=== PATIENT | female | born 1980 | race Two or more races ===

== ENCOUNTER 2017-12-29 13:52 | Emergency (ER) | payer MEDICAID ==
--- NOTE | 2017-12-29 14:44 | ER Document Report ---
ED Medical Screen (RME) - General Chief Complaint: Abdominal Pain Stated Complaint: STOMACH/BACK PAIN Time Seen by Provider: 12/29/17 14:36 Notes: RAPID MEDICAL EVALUATION DISCLOSURE I have seen this patient as part of a Rapid Medical Evaluation and, if applicable, placed any initially appropriate orders. The patient will be seen and fully evaluated, including a full history and physical exam, by a provider ( in Main ED or Fast Track) when a room becomes available. 37-year-old female status post gastric bypass surgery here with complaints of left-sided and epigastric abdominal pain that started earlier today. The pain has been a constant ache and has not improved. Patient's been taking her hydrocodone. No fevers or chills. She has chronic vomiting and diarrhea ever since her surgery in August and last episode was yesterday evening. EXAM Mild left upper quadrant / epigastric TTP TRAVEL OUTSIDE OF THE [place] IN LAST 30 DAYS: No - Related Data Allergies/Adverse Reactions: No Known Allergies Allergy (Verified 12/29/17 13:56) Home Medications: hydrocodone, gabapentin, vitamins Past Medical History - Social History Chew tobacco use (# tins/day): No Frequency of alcohol use: None Drug Abuse: None Neurological Medical History: Reports: Hx Migraine Renal/ Medical History: Denies: Hx Peritoneal Dialysis Psychiatric Medical History: Reports: Hx Anxiety, Hx Depression Past Surgical History: Reports: Hx Breast Surgery, Hx Section, Hx Oral Surgery Physical Exam - Vital signs Vitals: Temp Pulse Resp BP Pulse Ox 98.4 F 92 16 124/77 99 12/29/17 13:59 12/29/17 13:59 12/29/17 13:59 12/29/17 13:59 12/29/17 13:59 Course - Vital Signs Vital signs: Temp Pulse Resp BP Pulse Ox 98.4 F 92 16 124/77 99 12/29/17 13:59 12/29/17 13:59 12/29/17 13:59 12/29/17 13:59 12/29/17 13:59
[2017-12-29 15:29] LABS: ABSOLUTE LYMPHOCYTES (AUTO) 1.5 10^3/uL (0.5-4.7); ABSOLUTE MONOCYTES (AUTO) 0.4 10^3/uL (0.1-1.4); ABSOLUTE NEUT (AUTO) 4.4 10^3/uL (1.7-8.2); BASOPHILS % (AUTO) 0.3 % (0-2); EOSINOPHILS % (AUTO) 0.7 % (0-6); HEMATOCRIT 34.7 % (36.0-47.0); HEMOGLOBIN 11.4 g/dL (12.0-15.5); LYMPHOCYTES % (AUTO) 23.1 % (13-45); MEAN CORPUSCULAR HEMOGLOBIN 29.2 pg (27.0-33.4); MEAN CORPUSCULAR HGB CONC 32.7 g/dL (32.0-36.0); MEAN CORPUSCULAR VOLUME 89 fl (80-97); MONOCYTES % (AUTO) 5.9 % (3-13); PLATELET COUNT 263 10^3/uL (150-450); RED BLOOD COUNT 3.89 10^6/uL (3.72-5.28); RED CELL DISTRIBUTION WIDTH 13.6 % (11.5-14.0); TOTAL CELLS COUNTED % (AUTO) 100 %; WHITE BLOOD COUNT 6.3 10^3/uL (4.0-10.5)
[2017-12-29] MEDS ORDERED: NORMAL SALINE 1000 ML 1,000 ML IV ONE (15:37)
[2017-12-29] MEDS ORDERED: KETOROLAC TROMETHAMINE INJ/PF 30 MG/1 ML SDV IV ONE (15:39)
[2017-12-29] MEDS ORDERED: ONDANSETRON 4 MG TAB.RAPDIS PO ONE (15:40)
--- NOTE | 2017-12-29 15:48 | ER Document Report ---
ED General - General Chief Complaint: Abdominal Pain Stated Complaint: STOMACH/BACK PAIN Time Seen by Provider: 12/29/17 14:36 Mode of Arrival: Ambulatory Information source: Patient Notes: 39-year-old female presents emergency department for evaluation of abdominal pain. Patient had gastric bypass surgery in August. Patient reports that she has been having intermittent abdominal pain, vomiting, and diarrhea since. Patient reports that this recent abdominal pain started yesterday and came out of nowhere. She reports that it is in her epigastric area and left side. She denies any blood in her vomitus or diarrhea. Patient also reports that she has a headache and chills. She denies any fever, chest pain, shortness of breath, dysuria, or hematuria. TRAVEL OUTSIDE OF THE [place] IN LAST 30 DAYS: No - Related Data Allergies/Adverse Reactions: No Known Allergies Allergy (Verified 12/29/17 13:56) Home Medications: hydrocodone, gabapentin, vitamins Past Medical History - General Information source: Patient - Social History Smoking Status: Never Smoker Chew tobacco use (# tins/day): No Frequency of alcohol use: None Drug Abuse: None Family History: Reviewed & Not Pertinent Patient has suicidal ideation: No Patient has homicidal ideation: No Neurological Medical History: Reports: Hx Migraine Renal/ Medical History: Denies: Hx Peritoneal Dialysis Psychiatric Medical History: Reports: Hx Anxiety, Hx Depression Past Surgical History: Reports: Hx Breast Surgery, Hx Section, Hx Oral Surgery Review of Systems - Review of Systems -: Yes All other systems reviewed and negative Physical Exam - Vital signs Vitals: Temp Pulse Resp BP Pulse Ox 98.4 F 92 16 124/77 99 12/29/17 13:59 12/29/17 13:59 12/29/17 13:59 12/29/17 13:59 12/29/17 13:59 - Notes Notes: PHYSICAL EXAMINATION: GENERAL: Well-appearing, well-nourished and in no acute distress. HEAD: Atraumatic, normocephalic. EYES: Pupils equal round and reactive to light, extraocular movements intact, sclera anicteric, conjunctiva are normal. ENT: Nares patent, oropharynx clear without exudates. Moist mucous membranes. NECK: Normal range of motion, supple without lymphadenopathy LUNGS: Breath sounds clear to auscultation bilaterally and equal. No wheezes rales or rhonchi. HEART: Regular rate and rhythm without murmurs ABDOMEN: Soft, tenderness to the epigastric and left upper quadrant with no guarding, rigidity, rebound tenderness, or peritoneal signs. Abdomen nondistended. No masses appreciated. Bowel sounds normal in all 4 quadrants. Musculoskeletal: Normal range of motion, no pitting or edema. No cyanosis. NEUROLOGICAL: Cranial nerves grossly intact. Normal speech, normal gait. Normal sensory, motor exams PSYCH: Normal mood, normal affect. SKIN: Warm, Dry, normal turgor, no rashes or lesions noted. Course - Re-evaluation Re-evalutation: 12/29/17 15:53 Patient with history of gastric bypass surgery in August presents to the emergency department for evaluation of abdominal pain, nausea, vomiting and diarrhea. Patient was nontoxic or septic appearing in no acute or respiratory distress. Patient was afebrile and not hypoxic. Patient had tenderness to the epigastric and left quadrant. CT of abdomen ordered along with CBC, CMP, lipase , and UA. Will treat with 1 L normal saline and Toradol. Will reassess after treatment and labs resulted and treatment. 12/29/17 20:04 CMP demonstrated transaminitis see CMP. CBC, lipase, and UA were unremarkable. Case was discussed with Dr. Fairbanks attending and Dr. Osman surgery for concern of internal hernia. CT demonstrated 2 mm non-obstructing right sided renal calculi. No internal hernia or bowel obstruction was noted. Dr. Osman also had no concern for internal hernia. Hepatitis panel was ordered due to elevated liver enzymes. Patient was given Toradol, IV fluid, 4 mg of morphine. After treatment patient was feeling better. Abdomen was mildly tender. Patient is requesting to go home at this time. I discussed care plan at length with patient. Any and all questions were answered. Discharged home with Ritu. Patient reports that she is not in pain clinic and has plenty of pain medicine at home. Advised patient of her elevated liver enzymes and advised her to follow-up with her primary care provider and to take medications as instructed. I also advised her to return immediately to the emergency department for any new, worsening, or concerning symptoms as discussed. She understands and agrees with plan. 12/29/17 20:06 - Vital Signs Vital signs: Temp Pulse Resp BP Pulse Ox 98.3 F 71 18 103/60 97 12/29/17 19:54 12/29/17 19:54 12/29/17 19:54 12/29/17 19:54 12/29/17 19:54 - Laboratory Result Diagrams: 12/29/17 15:00 12/29/17 15:00 Laboratory results interpreted by me: 12/29/17 12/29/17 12/29/17 15:00 15:00 15:00 Hgb 11.4 L Hct 34.7 L Carbon Dioxide 31 H Creatinine 0.47 L AST 703 H ALT 230 H Alkaline Phosphatase 153 H Urine Urobilinogen 4.0 H Discharge - Discharge Clinical Impression: Transaminitis Condition: Good Disposition: HOME, SELF-CARE Instructions: Abdominal Pain ([facility]) Additional Instructions: Please follow-up with your primary care provider and take medications as instructed. Return immediately to the emergency department for any new, worsening, or concerning symptoms as discussed. Prescriptions: Ondansetron [Zofran Odt 4 mg Tablet] 1 - 2 tab PO Q4H PRN #15 tab.rapdis PRN Reason: For Nausea/Vomiting
[2017-12-29 15:49] LABS: ALANINE AMINOTRANSFERASE 230 U/L (9-52); ALKALINE PHOSPHATASE 153 U/L (38-126); ANION GAP 10 (5-19); ASPARTATE AMINO TRANSFERASE 703 U/L (14-36); BILIRUBIN,DIRECT 0.3 mg/dL (0.0-0.4); BILIRUBIN,TOTAL 0.3 mg/dL (0.2-1.3); BLOOD UREA NITROGEN 13 mg/dL (7-20); CALCIUM 9.3 mg/dL (8.4-10.2); CARBON DIOXIDE 31 mmol/L (22-30); CHLORIDE 102 mmol/L (98-107); GLUCOSE 103 mg/dL (75-110); LIPASE 67.1 U/L (23-300); SODIUM 142.9 mmol/L (137-145); TOTAL PROTEIN 6.9 g/dL (6.3-8.2)
[2017-12-29 15:53] LABS: APPEARANCE,URINE CLEAR; BILIRUBIN,URINE NEGATIVE (NEGATIVE); COLOR,URINE YELLOW; GLUCOSE, URINE NEGATIVE (NEGATIVE); KETONES,URINE NEGATIVE (NEGATIVE); LEUKOCYTE ESTERASE,URINE NEGATIVE (NEGATIVE); NITRITE,URINE NEGATIVE (NEGATIVE); PROTEIN,URINE NEGATIVE (NEGATIVE); URINE SPECIFIC GRAVITY 1.013
--- NOTE | 2017-12-29 17:55 | RADIOLOGY REPORT (SQ) ---
EXAM DESCRIPTION: CT ABD/PELVIS ORAL ONLY COMPLETED DATE/TIME: 12/29/2017 5:39 pm REASON FOR STUDY: GOP surgery, now epigastric pain COMPARISON: None. TECHNIQUE: CT scan of the abdomen and pelvis performed without intravenous or oral contrast. Images reviewed with lung, soft tissue, and bone windows. Reconstructed coronal and sagittal MPR images revi ewed. All images stored on PACS. All CT scanners at this facility use dose modulation, iterative reconstruction, and/or weight based d osing when appropriate to reduce radiation dose to as low as reasonably achievable (ALARA). [facility]: Dose Right [facility]: CareDose [facility]: Dose Right [facility]: Teradose 4D [facility]: [employer] RADIATION DOSE: CT Rad equipment meets quality standard of care and radiation dose reduction techniq ues were employed. CTDIvol: 8.6 mGy. DLP: 457 mGy-cm.mGy. LIMITATIONS: None. FINDINGS: LOWER CHEST: No significant findings. No nodules or infiltrates. NON-CONTRASTED LIVER, SPLEEN, ADRENALS: Evaluation limited by lack of IV contrast. No identified sign ificant masses. PANCREAS: No masses. No peripancreatic inflammatory changes. GALLBLADDER: Surgically absent. RIGHT KIDNEY AND URETER: No suspicious masses. Assessment limited by lack of IV contrast. 2 mm nono bstructing lower calyceal calculus. No hydronephrosis or hydroureter. LEFT KIDNEY AND URETER: No suspicious masses. Assessment limited by lack of IV contrast. No signifi cant calcifications. No hydronephrosis or hydroureter. AORTA AND RETROPERITONEUM: No aneurysm. No retroperitoneal masses or adenopathy. BOWEL AND PERITONEAL CAVITY: Surgical suture is present in association with the upper stomach. Contr ast is present in the colon. No obvious bowel mass is seen. No inflammatory changes are present. N o fluid collections are seen in association with the GI tract. APPENDIX: Not identified. PELVIS, BLADDER, AND ABDOMINAL WALL:The urinary bladder is normal. The uterus is prominent and sligh tly heterogeneous suggesting presence of fibroids. No free fluid. BONES: No significant findings. OTHER: No other significant finding. IMPRESSION: 1. Surgical changes. No evidence of an abscess. 2. Nonobstructing right renal calculus. 3. Likely uterine fibroids. COMMENT: Quality ID # [id number]: Final reports with documentation of one or more dose reduction techniques (e.g., Automated exposure control, adjustment of the mA and/or kV according to patient size, use of iterative reconstruction technique) TECHNICAL DOCUMENTATION: JOB ID: [id number] [employer]- All Rights Reserved Reading location - IP/workstation name: [email or web address]
[2017-12-29] MEDS ORDERED: MORPHINE SULFATE 10 MG/ML INJ IV ONE ×2 (18:34→19:44)
[2017-12-29 19:55] VITALS: BP 103/60
[2017-12-31 06:38] LABS: HEPATITIS A AB IGM Negative (Negative); HEPATITIS B CORE AB IGM Negative (Negative); HEPATITS B SURFACE ANTIGEN Negative (Negative)
[2017-12-31 12:07] LABS: HEPATITIS C VIRUS ANTIBODY 0.1 s/co ratio (0.0-0.9)
== END 2017-12-29 20:09 | disposition home or self-care (01) ==
LOC: ER 13:52
DX: R74.0 Nonspecific elevation of levels of transaminase and lactic acid dehydrogenase [LDH] (principal); Z98.84 Bariatric surgery status; N20.0 Calculus of kidney; R10.13 Epigastric pain; R10.812 Left upper quadrant abdominal tenderness; R11.10 Vomiting, unspecified; R19.7 Diarrhea, unspecified; R51 Headache; R68.83 Chills (without fever)
CPT/HCPCS: 96376; 99284; 96361; 96374; 96375; 36415; 83690; 85025; 81025; 80053; 81001; 80074; 74176; S0119; J1885; J2270; J7030

== ENCOUNTER 2018-11-19 16:21 | Emergency (ER) | payer MEDICAID ==
[2018-11-19 17:08] LABS: AMORPHOUS SEDIMENT,URINE TRACE /HPF; APPEARANCE,URINE SLIGHTLY-CLOUDY; BILIRUBIN,URINE NEGATIVE (NEGATIVE); COLOR,URINE YELLOW; GLUCOSE, URINE NEGATIVE (NEGATIVE); KETONES,URINE NEGATIVE (NEGATIVE); LEUKOCYTE ESTERASE,URINE LARGE (NEGATIVE); NITRITE,URINE NEGATIVE (NEGATIVE); PROTEIN,URINE NEGATIVE (NEGATIVE); URINE SPECIFIC GRAVITY 1.008; UROBILINOGEN,URINE NEGATIVE mg/dL (<2.0)
--- NOTE | 2018-11-19 17:10 | ER Document Report ---
ED Medical Screen (RME) - General Chief Complaint: Flank Pain Stated Complaint: BACK PAIN Time Seen by Provider: 11/19/18 16:48 Mode of Arrival: Ambulatory Information source: Patient Notes: Patient is a 38-year-old female who presents to the emergency department 2 weeks after having a D&C. Patient reports she was approximately 4 months at the time. She states she is having low abdominal pain, right flank pain and right low back pain. She reports low-grade fevers at home. Denies any nausea, vomiting or diarrhea. Exam: Patient alert, oriented with no acute distress noted. Tenderness to right lower quadrant with palpation. No CVA tenderness. I have greeted and performed a rapid initial assessment of this patient. A comprehensive ED assessment and evaluation of the patient, analysis of test results and completion of the medical decision making process will be conducted by additional ED providers. Dictation of this chart was performed using voice recognition software; therefore, there may be some unintended grammatical errors. TRAVEL OUTSIDE OF THE [place] IN LAST 30 DAYS: No - Related Data Allergies/Adverse Reactions: tramadol Allergy (Verified 11/19/18 16:34) Past Medical History - Social History Chew tobacco use (# tins/day): No Frequency of alcohol use: None Drug Abuse: None Neurological Medical History: Reports: Hx Migraine Renal/ Medical History: Denies: Hx Peritoneal Dialysis Psychiatric Medical History: Reports: Hx Anxiety, Hx Depression Past Surgical History: Reports: Hx Bowel Surgery, Hx Breast Surgery, Hx Section - x4, Hx Oral Surgery Physical Exam - Vital signs Vitals: Temp Pulse Resp BP Pulse Ox 98.9 F 90 18 131/76 H 98 11/19/18 16:45 11/19/18 16:45 11/19/18 16:45 11/19/18 16:45 11/19/18 16:45 Course - Vital Signs Vital signs: Temp Pulse Resp BP Pulse Ox 98.9 F 90 18 131/76 H 98 11/19/18 16:45 11/19/18 16:45 11/19/18 16:45 11/19/18 16:45 11/19/18 16:45
[2018-11-19 17:31] LABS: ABSOLUTE EOSINOPHILS # (AUTO) 0.1 10^3/uL (0.0-0.6); ABSOLUTE LYMPHOCYTES (AUTO) 1.8 10^3/uL (0.5-4.7); ABSOLUTE MONOCYTES (AUTO) 0.6 10^3/uL (0.1-1.4); ABSOLUTE NEUT (AUTO) 7.3 10^3/uL (1.7-8.2); BASOPHILS % (AUTO) 0.3 % (0-2); EOSINOPHILS % (AUTO) 0.7 % (0-6); HEMATOCRIT 33.6 % (36.0-47.0); HEMOGLOBIN 11.1 g/dL (12.0-15.5); LYMPHOCYTES % (AUTO) 18.3 % (13-45); MEAN CORPUSCULAR HEMOGLOBIN 29.4 pg (27.0-33.4); MEAN CORPUSCULAR HGB CONC 33.1 g/dL (32.0-36.0); MEAN CORPUSCULAR VOLUME 89 fl (80-97); MONOCYTES % (AUTO) 6.3 % (3-13); PLATELET COUNT 305 10^3/uL (150-450); RED BLOOD COUNT 3.78 10^6/uL (3.72-5.28); RED CELL DISTRIBUTION WIDTH 13.8 % (11.5-14.0); SEGMENTED NEUTROPHILS % (AUTO) 74.4 % (42-78); TOTAL CELLS COUNTED % (AUTO) 100 %; WHITE BLOOD COUNT 9.9 10^3/uL (4.0-10.5)
--- NOTE | 2018-11-19 17:49 | RADIOLOGY REPORT (SQ) ---
EXAM DESCRIPTION: U/S NON OB PEL TV W/DOPPLER COMPLETED DATE/TIME: 11/19/2018 5:35 pm REASON FOR STUDY: EVAL FOR RETAINED POC, D C 11/07/18 COMPARISON: None. TECHNIQUE: Dynamic and static grayscale images acquired of the pelvis via transvaginal approach and recorded on PACS. Additional selected color Doppler images recorded. LIMITATIONS: Overlying bowel gas. FINDINGS: UTERUS: Measures 10.0 x 5.6 x 7.0 cm. No focal myometrial mass was seen. ENDOMETRIAL STRIPE: The endometrium is heterogeneous and thickened measuring 1.7 cm in double wall th ickness. CERVIX: The cervix measures 3.8 cm in length. Nabothian cysts are noted. RIGHT OVARY AND DOPPLER: The right ovary was not visualized, obscured by overlying bowel gas. LEFT OVARY AND DOPPLER: The left ovary was not visualized, obscured by overlying bowel gas. FREE FLUID: None noted. IMPRESSION: 1. Heterogeneous and thickened endometrium, concerning for retained products of concept ion. 2. Nonvisualized ovaries. TECHNICAL DOCUMENTATION: JOB ID: [id number] 2010 [employer]- All Rights Reserved Rev-12/23 Reading location - IP/workstation name: [email or web address]
[2018-11-19] MEDS ORDERED: ONDANSETRON HCL INJ/PF 4 MG/2 ML SDV IV ONE (17:59)
[2018-11-19] MEDS ORDERED: HYDROMORPHONE HCL INJ/PF 2 MG/ML AMPULE IV ONE ×2 (17:59→20:11)
[2018-11-19] MEDS ORDERED: KETOROLAC TROMETHAMINE INJ/PF 30 MG/1 ML SDV IV ONE (18:00)
--- NOTE | 2018-11-19 18:03 | ER Document Report ---
ED General - General Chief Complaint: Flank Pain Stated Complaint: BACK PAIN Time Seen by Provider: 11/19/18 16:48 Mode of Arrival: Ambulatory Information source: Patient TRAVEL OUTSIDE OF THE [place] IN LAST 30 DAYS: No - HPI Patient complains to provider of: Low back pain and right flank pain Onset: Other - Past couple of days getting worse Onset/Duration: Sudden Quality of pain: Pressure Severity: Severe Pain Level: 5 Associated symptoms: denies: Chills, Diarrhea, Fever, Nausea, Vomiting Exacerbated by: Denies Relieved by: Denies Similar symptoms previously: No Recently seen / treated by doctor: No Notes: 38-year-old female coming in today with right-sided low back pain and right flank pain. 2 weeks ago had a dilation and curettage. She had a 4-month that was terminated due to medical problems and thus needed dilation and curettage. Having a lot of pressure when she urinates. No fevers or shaking chills. No nausea vomiting or diarrhea. She is not having any vaginal bleeding or foul-smelling vaginal discharge. - Related Data Allergies/Adverse Reactions: tramadol Allergy (Verified 11/19/18 16:34) Past Medical History - General Information source: Patient - Social History Smoking Status: Never Smoker Chew tobacco use (# tins/day): No Frequency of alcohol use: None Drug Abuse: None Family History: Reviewed & Not Pertinent Patient has suicidal ideation: No Patient has homicidal ideation: No Neurological Medical History: Reports: Hx Migraine Renal/ Medical History: Denies: Hx Peritoneal Dialysis Psychiatric Medical History: Reports: Hx Anxiety, Hx Depression Past Surgical History: Reports: Hx Bowel Surgery, Hx Breast Surgery, Hx Section - x4, Hx Oral Surgery Review of Systems - Review of Systems Notes: Constitutional: No fevers. No chills. EENT: No eye redness. No eye pain. No ear pain. No sore throat. Cardiovascular: No chest pain. No palpitations. Respiratory: No cough. No shortness of breath. No respiratory distress. Gastrointestinal: No abdominal pain. No nausea, vomiting, or diarrhea. Positive for right flank pain Genitourinary: Atraumatic. No lesions. No pain. No discharge. Musculoskeletal: Atraumatic. No swelling. No deformities. Positive for right sided back pain Skin: No rash or lesions. Lymphatic: No swollen lymph nodes. Neurologic: No headache. No syncope. Psychiatric: No suicidal or homicidal ideation. Physical Exam - Vital signs Vitals: Temp Pulse Resp BP Pulse Ox 98.9 F 90 18 131/76 H 98 11/19/18 16:45 11/19/18 16:45 11/19/18 16:45 11/19/18 16:45 11/19/18 16:45 - Notes Notes: General: Well-developed, well-nourished. In no acute distress. Non-toxic appearing. Cardiac: Well-perfused. Regular rate and rhythm. No murmurs, rubs, or gallops. Pulmonary: No respiratory distress. No cyanosis. Bilateral lung fiels are clear to auscultation. Abdominal: Non-distended. Non-rigid. Bowels sounds are present in all four quadrants. No guarding or rebound. HEENT: Head is atraumatic. Conjunctivae not reddened. No tearing. PERRL. EOMI. Orbits atraumatic. No periorbital swelling or erythema. Oropharynx is without erythema, swelling, or exudates. Neck: Supple. No adenopathy. No meningismus. Dermatologic: Warm with good turgor. No rash. Atraumatic. Chest: Atraumatic. No chest wall tenderness to palpation. Musculoskeletal: Moves all extremities well. No range of motion deficits. no muscular or joint tenderness. No paraspinal muscle tenderness. no midline spinal tenderness or step-off. Genitourinary: Examination deferred Neurologic: No gross neurologic deficits. Psychiatric: Normal mood. Course - Re-evaluation Re-evalutation: 11/19/18 18:02 Considerations include UTI, kidney stone, retained products - Vital Signs Vital signs: Temp Pulse Resp BP Pulse Ox 98.9 F 90 18 131/76 H 98 11/19/18 16:45 11/19/18 16:45 11/19/18 16:45 11/19/18 16:45 11/19/18 16:45 - Laboratory Result Diagrams: 11/19/18 17:10 11/19/18 18:15 Laboratory results interpreted by me: 11/19/18 11/19/18 11/19/18 16:42 16:42 17:10 Hgb 11.1 L Hct 33.6 L Creatinine Beta HCG, Quant Urine Blood SMALL H Ur Leukocyte Esterase LARGE H Urine HCG, Qual POSITIVE H 11/19/18 11/19/18 18:15 18:15 Hgb Hct Creatinine 0.46 L Beta HCG, Quant 37.74 H Urine Blood Ur Leukocyte Esterase Urine HCG, Qual - Consults Dr. Verduzco [employer] english as a second language instructor Time consulted: 20:30 Reason for consultation: 11/19/18 20:30 Thickened endometrium after elective and D&C Consulted provider: other - Patient does not have signs and symptoms that are consistent with an infective process like endometritis. It is possible that the D&C procedure did not fully clear out the endometrial lining. Recommend that the patient follow-up within the next week at the clinic in [place] to have this further taking care of. Recommends treatment for the urinary tract infection, but also recommends 100 mg of doxycycline twice a day for 5 days which would help with potential infections from the endometrium. If the patient absolutely is not able to follow-up with the doctor in [place], she may follow- up locally with the group here. Discharge - Discharge Clinical Impression: Retained products of conception following Urinary tract infection Qualifiers: Urinary tract infection type: site unspecified Hematuria presence: without hematuria Qualified Code(s): N39.0 - Urinary tract infection, site not specified Condition: Good Disposition: HOME, SELF-CARE Instructions: Urinary Tract Infection ([facility]) Additional Instructions: It appears that she may have retained endometrial lining in your uterus that should have come out with your dilatation and curettage procedure. This endometrial lining needs to be removed to prevent infection. You also have a urinary tract infection which we will treat today. Please contact the doctor office in [place] to arrange to have the dilatation and curettage repeated. If you run into any problems he may follow-up with our gynecology group here in [place] Prescriptions: Ciprofloxacin HCl [Cipro 500 mg Tablet] 500 mg PO BID #20 tablet Doxycycline Hyclate 100 mg PO BID #20 capsule Oxycodone HCl/Acetaminophen [Percocet 5-325 mg Tablet] 1 - 2 tab PO Q6H PRN #12 tablet PRN Reason: Referrals: ROSANA VERDUZCO MD [ACTIVE STAFF] - Follow up as needed
[2018-11-19 19:00] LABS: ALANINE AMINOTRANSFERASE 22 U/L (9-52); ALBUMIN 4.2 g/dL (3.5-5.0); ALKALINE PHOSPHATASE 88 U/L (38-126); ANION GAP 7 (5-19); ASPARTATE AMINO TRANSFERASE 22 U/L (14-36); BILIRUBIN,DIRECT 0.3 mg/dL (0.0-0.4); BILIRUBIN,TOTAL 0.3 mg/dL (0.2-1.3); BLOOD UREA NITROGEN 14 mg/dL (7-20); CALCIUM 8.9 mg/dL (8.4-10.2); CARBON DIOXIDE 30 mmol/L (22-30); CHLORIDE 103 mmol/L (98-107); GLUCOSE 80 mg/dL (75-110); SODIUM 140.1 mmol/L (137-145)
[2018-11-19 19:03] LABS: POTASSIUM 3.7 mmol/L (3.6-5.0)
[2018-11-19] MEDS ORDERED: CEFTRIAXONE 1 GM/D5W RTU 1 GM/50 ML RTUPB IV ONE (20:33)
[2018-11-19] MEDS ORDERED: HYDROCODONE/ACETAMINOPHEN 5-325 MG (6 TAB/ER DISP) PO PRN (20:39)
[2018-11-19 21:10] VITALS: BP 130/77
[2018-11-19 22:48] LABS: CHLAM PCR NOT DETECTED (NOT DETECT); GON PCR NOT DETECTED (NOT DETECT)
== END 2018-11-19 21:11 | disposition home or self-care (01) ==
LOC: ER 16:21
DX: O03.4 Incomplete spontaneous abortion without complication (principal); R10.9 Unspecified abdominal pain; M54.9 Dorsalgia, unspecified; M54.5 Low back pain; R30.9 Painful micturition, unspecified; Z98.890 Other specified postprocedural states
CPT/HCPCS: 96376; 99284; 96374; 96375; 36415; 84702; 85025; 81025; 80053; 81001; 87491; 87591; 76830; 93976; J1885; J1170; J2405; J0696

== ENCOUNTER 2018-11-29 15:29 | Emergency (ER) | payer MEDICAID ==
[2018-11-29] MEDS ORDERED: NORMAL SALINE 1000 ML 1,000 ML IV ONE (18:44)
[2018-11-29] MEDS ORDERED: DIPHENHYDRAMINE HCL 50 MG/ML VIAL IV ONE (18:44)
[2018-11-29] MEDS ORDERED: KETOROLAC TROMETHAMINE INJ/PF 30 MG/1 ML SDV IV ONE (18:44)
[2018-11-29] MEDS ORDERED: METOCLOPRAMIDE HCL INJ/PF 10 MG/2 ML SDV IV ONE (18:44)
--- NOTE | 2018-11-29 18:47 | ER Document Report ---
ED Medical Screen (RME) - General Chief Complaint: Headache Stated Complaint: HEADACHE/HEARTBURN Time Seen by Provider: 11/29/18 18:37 Mode of Arrival: Ambulatory Information source: Patient TRAVEL OUTSIDE OF THE [place] IN LAST 30 DAYS: No - HPI Patient complains to provider of: HEADACHE Notes: 11/29/18 18:46 Patient here with main complaint of headache. The patient states that she had an at the end of last month. She was seen here a few weeks ago was noted to have some retained products of conception. She has since seen Dr. Mejía of [employer] and was given some intravaginal tablets to help facilitate getting rid of the rest of the products of conception. States she is basically been vomiting since then for the last 4 days she has had a ache on the right side of her head. No head injury, no blood thinners. No blurred or loss of vision. No unilateral numbness, tingling, weakness. No neck stiffness. Exam Patient is nontoxic, no distress. Nonfocal neurological exam. Lungs clear and equal throughout. Plan CBC, CMP, lipase, UA. Saline lock. IV fluids. Toradol, Reglan, Benadryl. An initial examination was made on the patient as part of the triage process, and it was determined a more comprehensive evaluation was necessary. Initial labs were ordered and patient was transferred to another provider in the ED who assumed care and finished evaluation and plan. - Related Data Allergies/Adverse Reactions: tramadol Allergy (Verified 11/29/18 15:34) Past Medical History Neurological Medical History: Reports: Hx Migraine Renal/ Medical History: Denies: Hx Peritoneal Dialysis Psychiatric Medical History: Reports: Hx Anxiety, Hx Depression Past Surgical History: Reports: Hx Bowel Surgery, Hx Breast Surgery, Hx Section - x4, Hx Oral Surgery Physical Exam - Vital signs Vitals: Temp Pulse Resp BP Pulse Ox 98.4 F 73 14 132/85 H 98 11/29/18 15:44 11/29/18 15:44 11/29/18 15:44 11/29/18 15:44 11/29/18 15:44 Course - Vital Signs Vital signs: Temp Pulse Resp BP Pulse Ox 98.4 F 73 14 132/85 H 98 11/29/18 15:44 11/29/18 15:44 11/29/18 15:44 11/29/18 15:44 11/29/18 15:44
[2018-11-29 19:05] LABS: ABSOLUTE LYMPHOCYTES (AUTO) 2.3 10^3/uL (0.5-4.7); ABSOLUTE MONOCYTES (AUTO) 0.4 10^3/uL (0.1-1.4); ABSOLUTE NEUT (AUTO) 4.6 10^3/uL (1.7-8.2); BASOPHILS % (AUTO) 0.6 % (0-2); EOSINOPHILS % (AUTO) 0.6 % (0-6); HEMATOCRIT 33.1 % (36.0-47.0); HEMOGLOBIN 11.4 g/dL (12.0-15.5); LYMPHOCYTES % (AUTO) 31.1 % (13-45); MEAN CORPUSCULAR HEMOGLOBIN 29.5 pg (27.0-33.4); MEAN CORPUSCULAR HGB CONC 34.3 g/dL (32.0-36.0); MEAN CORPUSCULAR VOLUME 86 fl (80-97); MONOCYTES % (AUTO) 5.9 % (3-13); PLATELET COUNT 300 10^3/uL (150-450); RED BLOOD COUNT 3.85 10^6/uL (3.72-5.28); RED CELL DISTRIBUTION WIDTH 13.5 % (11.5-14.0); SEGMENTED NEUTROPHILS % (AUTO) 61.8 % (42-78); TOTAL CELLS COUNTED % (AUTO) 100 %; WHITE BLOOD COUNT 7.4 10^3/uL (4.0-10.5)
[2018-11-29 19:13] LABS: APPEARANCE,URINE SLIGHTLY-CLOUDY; BILIRUBIN,URINE NEGATIVE (NEGATIVE); COLOR,URINE YELLOW; GLUCOSE, URINE NEGATIVE (NEGATIVE); KETONES,URINE NEGATIVE (NEGATIVE); LEUKOCYTE ESTERASE,URINE NEGATIVE (NEGATIVE); NITRITE,URINE NEGATIVE (NEGATIVE); PROTEIN,URINE NEGATIVE (NEGATIVE); URINE SPECIFIC GRAVITY 1.014; UROBILINOGEN,URINE NEGATIVE mg/dL (<2.0)
[2018-11-29 19:25] LABS: ALANINE AMINOTRANSFERASE 22 U/L (9-52); ALBUMIN 4.1 g/dL (3.5-5.0); ALKALINE PHOSPHATASE 102 U/L (38-126); ANION GAP 7 (5-19); ASPARTATE AMINO TRANSFERASE 17 U/L (14-36); BILIRUBIN,DIRECT 0.3 mg/dL (0.0-0.4); BILIRUBIN,TOTAL 0.3 mg/dL (0.2-1.3); BLOOD UREA NITROGEN 10 mg/dL (7-20); CALCIUM 9.5 mg/dL (8.4-10.2); CARBON DIOXIDE 31 mmol/L (22-30); CHLORIDE 103 mmol/L (98-107); GLUCOSE 91 mg/dL (75-110); LIPASE 109.8 U/L (23-300); POTASSIUM 3.3 mmol/L (3.6-5.0); SODIUM 141.1 mmol/L (137-145); TOTAL PROTEIN 7.7 g/dL (6.3-8.2)
[2018-11-29] MEDS ORDERED: POTASSIUM CHLORIDE 10 MEQ CAPSULE.ER PO ONE (20:33)
[2018-11-29 20:42] VITALS: BP 126/80
--- NOTE | 2018-11-29 20:49 | ER Document Report ---
ED Headache - General Chief Complaint: Headache Stated Complaint: HEADACHE/HEARTBURN Time Seen by Provider: 11/29/18 18:37 Mode of Arrival: Ambulatory Information source: Patient TRAVEL OUTSIDE OF THE [place] IN LAST 30 DAYS: No - HPI Patient complains to provider of: Headache Notes: Patient is here with complaints of headache. The patient recently had an and then was found to have some retained products of conception and saw her OB. She states that she has been dealing with the vaginal bleeding. Patient states that she has had some nausea vomiting for the last several days and has not been able keep anything down she now has a right-sided headache. No injury. No blood thinners. No fever. No neck stiffness. No numbness, tingling, weakness. She denies any worsening abdominal pain. No chest pain or shortness of breath. She has some mild photophobia. Headache was not sudden onset or thunderclap in nature. No neck stiffness. No other complaints. - Related Data Allergies/Adverse Reactions: tramadol Allergy (Verified 11/29/18 15:34) Past Medical History - General Information source: Patient - Social History Smoking Status: Never Smoker Chew tobacco use (# tins/day): No Frequency of alcohol use: None Drug Abuse: None Family History: Reviewed & Not Pertinent Patient has suicidal ideation: No Patient has homicidal ideation: No Neurological Medical History: Reports: Hx Migraine Renal/ Medical History: Denies: Hx Peritoneal Dialysis Psychiatric Medical History: Reports: Hx Anxiety, Hx Depression Past Surgical History: Reports: Hx Bowel Surgery, Hx Breast Surgery, Hx Section - x4, Hx Oral Surgery Review of Systems - Review of Systems -: Yes All other systems reviewed and negative Physical Exam - Vital signs Vitals: Temp Pulse Resp BP Pulse Ox 98.4 F 73 14 132/85 H 98 11/29/18 15:44 11/29/18 15:44 11/29/18 15:44 11/29/18 15:44 11/29/18 15:44 - Notes Notes: GENERAL: alert, cooperative, nontoxic, no distress. HEAD: normocephalic, atraumatic EYES: conjunctiva pink without discharge, no external redness or swelling. Pupils are equal, round, reactive to light. EARS: no external swelling, no external redness NOSE: atraumatic, no external swelling MOUTH/THROAT: mucous membranes moist and pink, posterior pharynx without erythema, swelling, exudate. No trismus or drooling. NECK: soft, supple, full range of motion, no meningismus. CHEST: no distress, lungs clear and equal throughout. No wheezing, rales, rhonchi. CARDIAC: regular rate and rhythm, no murmur, normal capillary refill, normal pulses. No peripheral edema noted. BACK: full range of motion, no CVA tenderness. EXTREMITIES: full range of motion of all extremities. No redness, no swelling. NEURO: alert and oriented x 3, cranial nerves II through XII are grossly intact. Upper and lower extremities are equal throughout. Normal sensation. No focal deficits, full range of motion of all extremities. normal finger to nose. PYSCH: appropriate mood, affect. Patient is cooperative SKIN: pink, warm, dry, no rash. Course - Re-evaluation Re-evalutation: 11/29/18 20:49 Patient is nontoxic-appearing stable vitals. Patient here with complaints of nausea vomiting and headache. Not sudden onset or thunderclap in nature. No blood thinners. No fever or neck stiffness. Nonfocal neuro exam. No sign risk of subarachnoid hemorrhage or meningitis. I do believe the patient is likely experiencing headaches secondary to dehydration from her nausea vomiting. She was given fluids, migraine cocktail with significant improvement of her pain. She states that she feels significant better would like to go home. Patient will be discharged home with prescription for Zofran oral and Phenergan AK. Instructions to drink plenty fluids. Follow-up if not better in the next few days, sooner if worsening pain, fever, numbness, tingling, weakness, neck stiffness, any further concerns. The patient's emergency department workup and current diagnosis were explained to the patient and or family. Follow-up instructions were provided. Medications if prescribed were discussed. Instructions for when to return to the emergency department including specific worrisome symptoms were discussed with the patient and/or family. - Vital Signs Vital signs: Temp Pulse Resp BP Pulse Ox 98.6 F 80 16 126/80 H 100 11/29/18 20:40 11/29/18 20:40 11/29/18 20:40 11/29/18 20:40 11/29/18 20:40 - Laboratory Result Diagrams: 11/29/18 18:52 11/29/18 18:53 Laboratory results interpreted by me: 11/29/18 11/29/18 11/29/18 18:52 18:52 18:53 Hgb 11.4 L Hct 33.1 L Potassium 3.3 L Carbon Dioxide 31 H Urine Blood MODERATE H Discharge - Discharge Clinical Impression: Hypokalemia Nausea & vomiting Qualifiers: Vomiting type: unspecified Vomiting Intractability: unspecified Qualified Code(s): R11.2 - Nausea with vomiting, unspecified Headache Qualifiers: Headache type: unspecified Headache chronicity pattern: unspecified pattern Intractability: not intractable Qualified Code(s): R51 - Headache Condition: Stable Disposition: HOME, SELF-CARE Instructions: Headache ([facility]) Additional Instructions: Take medication as prescribed. Drink plenty of fluids. Follow-up with your MACHINE CLEANER as scheduled tomorrow. Follow-up sooner for worsening pain, fever, neck stiffness, numbness, tingling, weakness, any further concerns. Prescriptions: Ondansetron HCl [Zofran 4 mg Tablet] 1 tab PO Q4H PRN #10 tablet PRN Reason: Promethazine HCl [Phenergan 25 mg Supp.rect] 1 supp AK Q6H #12 supp.rect Forms: Elevated Blood Pressure, Smoking Cessation Education Referrals: [facility] [Provider Group] - Follow up as needed
== END 2018-11-29 20:55 | disposition home or self-care (01) ==
LOC: ER 15:29
DX: E87.6 Hypokalemia (principal); R51 Headache; R11.2 Nausea with vomiting, unspecified
CPT/HCPCS: 99284; 96361; 96374; 96375; 36415; 83690; 85025; 80053; 81001; J1200; J1885; J2765; J7030

== ENCOUNTER 2019-01-01 03:48 | Emergency (ER) | payer MEDICAID ==
--- NOTE | 2019-01-01 04:34 | ER Document Report ---
HPI - HPI Time Seen by Provider: 01/01/19 04:14 Pain Level: 3 Notes: Patient is a 38-year-old female who presents to the emergency department for right hand swelling. Patient states that on Tuesday she was cleaning the house and while bending over she tripped over a rug and landed on her right hand palm down. She states that since then she has had right hand swelling and bruising. Patient states the pain is worse with movement and states she really noticed the discomfort when she was attempting to open a bottle. Patient also states that she started her relister injections on which was prescribed by her [employer] scout for constipation. She states that after the injection notices swelling around her eyes. Patient denies throat swelling, lip swelling or irritation to the throat. Patient denies hives. Patient states the swelling is just localized around her eyes. - REPRODUCTIVE Reproductive: DENIES: : Past Medical History - General Information source: Patient - Social History Smoking Status: Unknown if Ever Smoked Lives with: Spouse/Significant other Family History: Reviewed & Not Pertinent - Past Medical History Cardiac Medical History: Reports: None Pulmonary Medical History: Reports: None EENT Medical History: Reports: None Neurological Medical History: Reports: Hx Migraine Endocrine Medical History: Reports: None Renal/ Medical History: Reports: None. Denies: Hx Peritoneal Dialysis Malignancy Medical History: Reports: None GI Medical History: Reports: None Musculoskeletal Medical History: Reports None Skin Medical History: Reports None Psychiatric Medical History: Reports: Hx Anxiety, Hx Depression Traumatic Medical History: Reports: None Infectious Medical History: Reports: None Past Surgical History: Reports: Hx Bowel Surgery, Hx Breast Surgery, Hx Section - x4, Hx Oral Surgery Vertical Provider Document - CONSTITUTIONAL Agree With Documented VS: Yes Exam Limitations: No Limitations General Appearance: No Apparent Distress - INFECTION CONTROL TRAVEL OUTSIDE OF THE [place] IN LAST 30 DAYS: No - HEENT HEENT: Atraumatic, Normal ENT Exam, Normocephalic - NECK Neck: Normal Inspection - RESPIRATORY Respiratory: Breath Sounds Normal, No Respiratory Distress - CARDIOVASCULAR Cardiovascular: Regular Rate, Regular Rhythm - GI/ABDOMEN Gastrointestinal: Abdomen Soft - MUSCULOSKELETAL/EXTREMETIES Notes: Patient is able to rotate right wrist, + strong right radial pulse, no obvious deformity, Normal opposition, bruising noted on the lateral aspect of the right hand. + snuff box tenderness. - NEURO Level of Consciousness: Awake, Alert, Appropriate - DERM Integumentary: Warm, Dry, No Rash Course - Re-evaluation Re-evalutation: 01/01/19 06:05 Patient xray was negative. Due to mechanism of injury and positive snuff box tenderness I will place patient in a thumb spica splint and have follow up with orthopedics. - Vital Signs Vital signs: Temp Pulse Resp BP Pulse Ox 98.8 F 93 20 128/76 H 98 01/01/19 03:53 01/01/19 03:53 01/01/19 03:53 01/01/19 03:53 01/01/19 03:53 Discharge - Discharge Clinical Impression: Right hand pain Condition: Stable Disposition: HOME, SELF-CARE Additional Instructions: Today you were seen in the emergency department for right hand pain after a fall two days ago. Your XRAY was negative but since you are having discomfort in a specific area of your wrist I have placed you into a thumb spica splint. Please keep this dry and intact until follow up with Orthopedics. Call them tomorrow for an appointment. Return to the ER if you have discoloration of your fingers, new numbness or tingling to your hand or any other concerning signs or symptoms. It is unsure what was causing the swelling around your eyes - this was not present during your visit. Stop the Relister injections for today and call your GI doctor tomorrow to report the possible reaction to this medication as the swelling started after taking this medication. Splint Precautions A splint has been placed. This will protect the area while healing begins. Your problem does NOT normally require a cast. It MUST, however, be held still! Keep the splint on ALL THE TIME until instructed to remove it by the doctor. As you begin to use the area, be careful. You shouldn't do anything which causes discomfort -- you may disturb the injury even with the splint in place. After the initial period of rest and elevation, if splint does not prevent pain when you move, come back. You may require placement of a different splint, or a cast. If there is unexpected severe pain, or numbness, discoloration, or swelling beyond the splint, you should return at once. If you feel that the splint has broken or become loose, come back. Forms: Parent Work Note, Return to Work Referrals: ERNA ESTRADA, DO [ACTIVE STAFF] - Follow up as needed
--- NOTE | 2019-01-01 05:55 | RADIOLOGY REPORT (SQ) ---
EXAM DESCRIPTION: XR HAND 3 OR MORE VIEWS COMPLETED DATE/TME: 01/01/2019 04:23 CLINICAL HISTORY: 38 years, Female, fall onto right hand with bruising and pain COMPARISON: None. NUMBER OF VIEWS: Three TECHNIQUE: Three views of the right hand LIMITATIONS: None. FINDINGS: There is no acute fracture or dislocation. The joint spaces are preserved. No large soft tissue swelling. No radiopaque foreign body. IMPRESSION: No acute fracture or dislocation. copyright 2010 [employer]- All Rights Reserved
[2019-01-01 06:58] VITALS: BP 130/78
== END 2019-01-01 06:21 | disposition home or self-care (01) ==
LOC: ER 03:48
DX: S60.221A Contusion of right hand, initial encounter (principal); M79.641 Pain in right hand; W01.0XXA Fall on same level from slipping, tripping and stumbling without subsequent striking against object, initial encounter; Y93.E9 Activity, other interior property and clothing maintenance; Y92.009 Unspecified place in unspecified non-institutional (private) residence as the place of occurrence of the external cause; K59.00 Constipation, unspecified
CPT/HCPCS: 99283

== ENCOUNTER 2019-07-21 20:41 | Emergency (ER) | payer MEDICAID ==
--- NOTE | 2019-07-21 21:05 | ER Document Report ---
ED Medical Screen (RME) - General Stated Complaint: SHORTNESS OF BREATH,SINUS PRESSURE Time Seen by Provider: 07/21/19 21:00 Primary Care Provider: SKYLER LOGAN [Primary Care Provider] - Follow up as needed Mode of Arrival: Ambulatory Information source: Patient Notes: Patient presents emergency department with complaints of severe headache feeling short of breath, left arm pain and fever for the past couple days. Patient reports she did receive her flu vaccine. Patient reports history of gastric bypass. Denies history of cardiac disease. Patient reports she took Tylenol without relief of symptoms. Respiratory rate even nonlabored I have greeted and performed a rapid initial assessment of this patient. A comprehensive ED assessment and evaluation of the patient, analysis of test results and completion of the medical decision making process will be conducted by additional ED providers. Dictation of this chart was performed using voice recognition software; therefore, there may be some unintended grammatical errors. TRAVEL OUTSIDE OF THE [place] IN LAST 30 DAYS: No - Related Data Allergies/Adverse Reactions: tramadol Allergy (Verified 11/29/18 15:34) Past Medical History Neurological Medical History: Reports: Hx Migraine Renal/ Medical History: Denies: Hx Peritoneal Dialysis Psychiatric Medical History: Reports: Hx Anxiety, Hx Depression Past Surgical History: Reports: Hx Bowel Surgery, Hx Breast Surgery, Hx Section - x4, Hx Oral Surgery Physical Exam - Vital signs Vitals: Temp Pulse Resp BP Pulse Ox 98.4 F 94 20 122/101 H 98 07/21/19 20:52 07/21/19 20:52 07/21/19 20:52 07/21/19 20:52 07/21/19 20:52 Course - Vital Signs Vital signs: Temp Pulse Resp BP Pulse Ox 98.4 F 94 20 122/101 H 98 07/21/19 20:52 07/21/19 20:52 07/21/19 20:52 07/21/19 20:52 07/21/19 20:52 Doctor's Discharge - Discharge Referrals: SKYLER LOGAN [Primary Care Provider] - Follow up as needed
[2019-07-21 21:28] LABS: ABSOLUTE MONOCYTES (AUTO) 0.4 10^3/uL (0.1-1.4); ABSOLUTE NEUT (AUTO) 13.6 10^3/uL (1.7-8.2); BASOPHILS % (AUTO) 0.1 % (0-2); HEMATOCRIT 38.9 % (36.0-47.0); LYMPHOCYTES % (AUTO) 6.4 % (13-45); MEAN CORPUSCULAR HGB CONC 33.6 g/dL (32.0-36.0); MEAN CORPUSCULAR VOLUME 89 fl (80-97); MONOCYTES % (AUTO) 2.4 % (3-13); PLATELET COUNT 304 10^3/uL (150-450); RED BLOOD COUNT 4.35 10^6/uL (3.72-5.28); RED CELL DISTRIBUTION WIDTH 13.1 % (11.5-14.0); SEGMENTED NEUTROPHILS % (AUTO) 91.1 % (42-78); TOTAL CELLS COUNTED % (AUTO) 100 %; WHITE BLOOD COUNT 14.9 10^3/uL (4.0-10.5)
[2019-07-21 21:47] LABS: ALBUMIN 4.7 g/dL (3.5-5.0); ALKALINE PHOSPHATASE 68 U/L (38-126); ANION GAP 15 (5-19); ASPARTATE AMINO TRANSFERASE 17 U/L (14-36); BILIRUBIN,DIRECT 0.2 mg/dL (0.0-0.4); BILIRUBIN,TOTAL 0.4 mg/dL (0.2-1.3); BLOOD UREA NITROGEN 11 mg/dL (7-20); CALCIUM 9.7 mg/dL (8.4-10.2); CARBON DIOXIDE 22 mmol/L (22-30); CHLORIDE 104 mmol/L (98-107); GLUCOSE 147 mg/dL (75-110); POTASSIUM 3.5 mmol/L (3.6-5.0); TOTAL PROTEIN 8.3 g/dL (6.3-8.2)
--- NOTE | 2019-07-21 21:48 | RADIOLOGY REPORT (SQ) ---
EXAM DESCRIPTION: XR CHEST 2 VIEWS COMPLETED DATE/TME: 07/21/2019 21:03 CLINICAL HISTORY: 39 years, Female, sob COMPARISON: X-ray chest 04/22/2016 NUMBER OF VIEWS: TECHNIQUE: LIMITATIONS: None. FINDINGS: No evidence of pulmonary infiltrate or pleural effusion. The heart and mediastinum are unremarkable. Pulmonary vascularity appears normal. There are surgical clips in the upper abdomen. IMPRESSION: No acute finding. copyright 2010 [email or web address]- All Rights Reserved
[2019-07-21] MEDS ORDERED: ACETAMINOPHEN SOLN 325 MG/10.15 ML UDCUP PO ONE (23:26)
--- NOTE | 2019-07-22 00:08 | EKG REPORT ---
SEVERITY:- BORDERLINE ECG - SINUS RHYTHM BORDERLINE T WAVE ABNORMALITIES : Confirmed by: Maverick Duke MD 22-Jul-2019 00:07:34
[2019-07-22] MEDS ORDERED: IBUPROFEN 600 MG TABLET PO ONE (01:28)
[2019-07-22] MEDS ORDERED: CEFTRIAXONE INJ 250 MG VIAL IM ONE (03:16)
[2019-07-22] MEDS ORDERED: DEXAMETHASONE SOD PHOS INJ 10 MG/1 ML VIAL IM ONE (03:17)
--- NOTE | 2019-07-22 03:34 | ER Document Report ---
ED ENT - General Chief Complaint: Sinus Pain Stated Complaint: SHORTNESS OF BREATH,SINUS PRESSURE Time Seen by Provider: 07/21/19 21:00 Primary Care Provider: SKYLER LOGAN [Primary Care Provider] - Follow up as needed Mode of Arrival: Ambulatory TRAVEL OUTSIDE OF THE [place] IN LAST 30 DAYS: No - Related Data Allergies/Adverse Reactions: tramadol Allergy (Verified 11/29/18 15:34) Home Medications: hydrocodone. antidepressant Past Medical History - General Information source: Patient - Social History Smoking Status: Never Smoker Chew tobacco use (# tins/day): No Frequency of alcohol use: None Drug Abuse: None Family History: Reviewed & Not Pertinent Patient has suicidal ideation: No Patient has homicidal ideation: No Neurological Medical History: Reports: Hx Migraine Renal/ Medical History: Denies: Hx Peritoneal Dialysis Psychiatric Medical History: Reports: Hx Anxiety, Hx Depression Past Surgical History: Reports: Hx Bowel Surgery, Hx Breast Surgery, Hx Section - x4, Hx Oral Surgery Physical Exam - Vital signs Vitals: Temp Pulse Resp BP Pulse Ox 98.4 F 94 20 122/101 H 98 07/21/19 20:52 07/21/19 20:52 07/21/19 20:52 07/21/19 20:52 07/21/19 20:52 Course - Vital Signs Vital signs: Temp Pulse Resp BP Pulse Ox 97.8 F 87 16 143/94 H 99 07/21/19 23:21 07/21/19 23:21 07/21/19 23:21 07/21/19 23:21 07/21/19 23:21 - Laboratory Result Diagrams: 07/21/19 21:14 07/21/19 21:14 Laboratory results interpreted by me: 07/21/19 07/21/19 21:14 21:14 WBC 14.9 H Lymph % (Auto) 6.4 L [place] % (Auto) 2.4 L Absolute Neuts (auto) 13.6 H Seg Neutrophils % 91.1 H Potassium 3.5 L Glucose 147 H Total Protein 8.3 H Discharge - Discharge Clinical Impression: Sinus headache Acute sinusitis Qualifiers: Sinusitis location: unspecified location Recurrence: not specified as recurrent Qualified Code(s): J01.90 - Acute sinusitis, unspecified Condition: Good Disposition: HOME, SELF-CARE Instructions: Sinusitis ([facility]) Additional Instructions: Please use the medications as prescribed cefdinir and prednisone. Diflucan is given for possible yeast infection complications. Follow-up with your doctor as needed. Referrals: SKYLER LOGAN [Primary Care Provider] - Follow up as needed
[2019-07-22 03:41] VITALS: BP 143/82
== END 2019-07-22 03:55 | disposition home or self-care (01) ==
LOC: ER 20:41
DX: J01.90 Acute sinusitis, unspecified (principal); R51 Headache; F32.9 Major depressive disorder, single episode, unspecified; Z79.899 Other long term (current) drug therapy; Z79.891 Long term (current) use of opiate analgesic; Z88.8 Allergy status to other drugs, medicaments and biological substances
CPT/HCPCS: 93005; 99285; 96372; 96374; 36415; 85025; 80053; 84484; 71046; 93010; J3490 ×2; J0696; J1100

== ENCOUNTER 2019-11-25 15:58 | Emergency (ER) | payer MEDICAID ==
[2019-11-25] MEDS ORDERED: ONDANSETRON HCL INJ/PF 4 MG/2 ML SDV IV ONE (17:01)
[2019-11-25] MEDS ORDERED: MORPHINE SULFATE 10 MG/ML INJ IV ONE (17:01)
--- NOTE | 2019-11-25 17:04 | ER Document Report ---
ED GI/ - General TRAVEL OUTSIDE OF THE [place] IN LAST 30 DAYS: No <TAVO HOLMAN - Last Filed: 11/25/19 19:51> <DEMARIOLC LUEVANO - Last Filed: 11/26/19 01:32> - General Chief Complaint: Epigastric Pain Stated Complaint: EPIGASTRIC PAIN,LEFT ARM PAIN Time Seen by Provider: 11/25/19 16:47 Primary Care Provider: SKYLER LOGAN [NO LOCAL MD] - Follow up tomorrow Notes: CHIEF COMPLAINT: Epigastric abdominal pain for 4 days HPI: 39-year-old female with history of Casey-en-Y gastric bypass in [place] [address] Dasilva now following with Dr. Macias presenting for 4 days of a constant aching epigastric discomfort. Patient states she has nausea vomiting episodes every day and this is not abnormal for her unfortunately. Patient states today she had a sudden increase in the discomfort which seemed to radiate through the chest into the left shoulder and down the left arm for approximately 1 minute no shortness of breath. No chest pain or discomfort in the arm at this time. ROS: See HPI - all other systems were reviewed and are otherwise negative Constitutional: no fever Eyes: no drainage, no blurred vision ENT: no runny nose, no sore throat Cardiovascular: + chest pain Resp: no SOB, no cough GI: + vomiting, no diarrhea, + abdominal pain : no dysuria Integumentary: no rash Allergy: no hives Musculoskeletal: no extremity pain or swelling Neurological: no numbness/tingling, no weakness MEDICATIONS: I agree with the patient medications as charted by the RN. ALLERGIES: I agree with the allergies as charted by the RN. PAST MEDICAL HISTORY/PAST SURGICAL HISTORY: Reviewed and agree as charted by RN. SOCIAL HISTORY: Reviewed and agree as charted by RN. FAMILY HISTORY: No significant familial comorbid conditions directly related to patient complaint EXAM: Reviewed vital signs as charted by RN. CONSTITUTIONAL: Alert and oriented and responds appropriately to questions. Well-appearing; well-nourished mild distress secondary to pain HEAD: Normocephalic; atraumatic EYES: PERRL; Conjunctivae clear, sclerae non-icteric ENT: normal nose; no rhinorrhea; moist mucous membranes; pharynx without lesions noted, no uvula edema or deviation, no tonsillar hypertrophy, phonation normal NECK: Supple without meningismus; non-tender; no cervical lymphadenopathy, no masses CARD: RRR; no murmurs, no clicks, no rubs, no gallops; symmetric distal pulses RESP: Normal chest excursion without splinting or tachypnea; breath sounds clear and equal bilaterally; no wheezes, no rhonchi, no rales, pulse oximetry 97% on room air not hypoxic ABD/GI: Normal bowel sounds; non-distended; soft, mild tenderness to the epigastric region on palpation, no rebound, no guarding; no palpable organomegaly or masses. BACK: The back appears normal and is non-tender to palpation, there is no CVA tenderness EXT: Normal ROM in all joints; non-tender to palpation; no cyanosis, no effusions, no edema SKIN: Normal color for age and race; warm; dry; good turgor; no acute lesions noted NEURO: Moves all extremities equally; Motor and sensory function intact PSYCH: The patient's mood and manner are appropriate. Grooming and personal hygiene are appropriate. MDM: 39-year-old female with gastric bypass history in 2017 has had problems with with abdominal pain and vomiting since her surgery but has had 4 days of more persistent epigastric abdominal discomfort. States she had an episode of chest discomfort today for 1 minute approximately 3 to 4 hours ago. Has no discomfort at this time. Patient has no known cardiac history that she is aware of. Will obtain EKG and 1 set of screening cardiac labs although I suspect this is likely gastric in origin. Will obtain screening labs and plan for CT with oral contrast given the gastric bypass history (TAVO HOLMAN) - Related Data Allergies/Adverse Reactions: tramadol Allergy (Verified 11/25/19 17:08) Past Medical History - Social History Family History: Reviewed & Not Pertinent Neurological Medical History: Reports: Hx Migraine Renal/ Medical History: Denies: Hx Peritoneal Dialysis Psychiatric Medical History: Reports: Hx Anxiety, Hx Depression Past Surgical History: Reports: Hx Bowel Surgery, Hx Breast Surgery, Hx Section - x4, Hx Oral Surgery <TAVO HOLMAN - Last Filed: 11/25/19 19:51> - General Information source: Patient - Social History Smoking Status: Never Smoker Lives with: Family <LC HAILE - Last Filed: 11/26/19 01:32> Physical Exam - Vital signs Vitals: Temp Pulse Resp BP Pulse Ox 99.0 F 98 18 139/89 H 99 11/25/19 16:03 11/25/19 16:03 11/25/19 16:03 11/25/19 16:03 11/25/19 16:03 Course - Laboratory Result Diagrams: 11/25/19 17:30 11/25/19 17:30 <TAVO HOLMAN - Last Filed: 11/25/19 19:51> - Laboratory Result Diagrams: 11/25/19 17:30 11/25/19 17:30 <LC HAILE - Last Filed: 11/26/19 01:32> - Re-evaluation Re-evalutation: 11/25/19 19:51 report will be given to oncoming shift to follow and disposition. (TAVO HOLMAN) I was performing a procedure and nursing staff informed me that patient had called out 3 times with her call roy, I did review CAT scan results and this was unremarkable no acute findings (CT of the abdomen pelvis with IV contrast), reviewed labs which were unremarkable. I reevaluated patient. Patient is very talkative and well-appearing. She had previously been complaining of headache but currently has no complaints. She states that she did have sharp epigastric pain earlier but she states this is not new, she also reports intermittent nausea and vomiting but this is also not new. I discussed results and my intention of discussing with Dr. Macias, bariatric surgery and I will get back to her. Patient states that she will not wait for this, she requests and then insisted that she be discharged. She states that she will call them tomorrow and call her car refinisher tomorrow as well. I did provide patient with nausea medication, I did discuss recommendations, follow-up, and return precautions. Patient does state understanding and agreement. Stable and well- appearing at time of discharge. (LC HAILE) - Vital Signs Vital signs: Temp Pulse Resp BP Pulse Ox 98.5 F 90 18 127/86 H 100 11/25/19 22:05 11/25/19 22:05 11/25/19 22:05 11/25/19 22:05 11/25/19 22:05 - Laboratory Laboratory results interpreted by me: 11/25/19 11/25/19 11/25/19 17:20 17:30 17:30 RDW 15.3 H Sodium 136.5 L Glucose 111 H Total Protein 8.4 H Urine Blood SMALL H Discharge <TAVO HOLMAN - Last Filed: 11/25/19 19:51> <LC HAILE - Last Filed: 11/26/19 01:32> - Discharge Clinical Impression: Epigastric pain Condition: Stable Disposition: HOME, SELF-CARE Additional Instructions: Your laboratory work-up, CAT scan, and overall evaluation is reassuring. Take the symptom management for pain and nausea if needed, call your car refinisher and bariatric surgeon tomorrow for close follow-up and additional management. Return if you worsen including uncontrolled vomiting, vomiting blood, severe worsening pain, black stools, spiking fever, or any other concerning symptoms. Prescriptions: Ondansetron [Zofran Odt 4 mg Tablet] 1 - 2 tab PO Q4H PRN #15 tab.rapdis PRN Reason: For Nausea/Vomiting Referrals: SKYLER LOGAN [NO LOCAL MD] - Follow up tomorrow
[2019-11-25 17:39] LABS: APPEARANCE,URINE CLEAR; BILIRUBIN,URINE NEGATIVE (NEGATIVE); COLOR,URINE YELLOW; GLUCOSE, URINE NEGATIVE (NEGATIVE); KETONES,URINE NEGATIVE (NEGATIVE); LEUKOCYTE ESTERASE,URINE NEGATIVE (NEGATIVE); NITRITE,URINE NEGATIVE (NEGATIVE); PROTEIN,URINE NEGATIVE (NEGATIVE); URINE SPECIFIC GRAVITY 1.014; UROBILINOGEN,URINE NEGATIVE mg/dL (<2.0)
[2019-11-25 18:00] LABS: ABSOLUTE EOSINOPHILS # (AUTO) 0.1 10^3/uL (0.0-0.6); ABSOLUTE MONOCYTES (AUTO) 0.4 10^3/uL (0.1-1.4); ABSOLUTE NEUT (AUTO) 3.8 10^3/uL (1.7-8.2); BASOPHILS % (AUTO) 0.6 % (0-2); HEMATOCRIT 36.1 % (36.0-47.0); HEMOGLOBIN 12.1 g/dL (12.0-15.5); LYMPHOCYTES % (AUTO) 32.4 % (13-45); MEAN CORPUSCULAR HEMOGLOBIN 30.8 pg (27.0-33.4); MEAN CORPUSCULAR HGB CONC 33.6 g/dL (32.0-36.0); MEAN CORPUSCULAR VOLUME 92 fl (80-97); MONOCYTES % (AUTO) 6.2 % (3-13); PLATELET COUNT 332 10^3/uL (150-450); RED BLOOD COUNT 3.93 10^6/uL (3.72-5.28); RED CELL DISTRIBUTION WIDTH 15.3 % (11.5-14.0); SEGMENTED NEUTROPHILS % (AUTO) 59.8 % (42-78); TOTAL CELLS COUNTED % (AUTO) 100 %; WHITE BLOOD COUNT 6.3 10^3/uL (4.0-10.5)
[2019-11-25 18:19] LABS: ALBUMIN 4.6 g/dL (3.5-5.0); ALKALINE PHOSPHATASE 94 U/L (38-126); ANION GAP 10 (5-19); ASPARTATE AMINO TRANSFERASE 21 U/L (14-36); BILIRUBIN,TOTAL 0.4 mg/dL (0.2-1.3); BLOOD UREA NITROGEN 9 mg/dL (7-20); CALCIUM 9.4 mg/dL (8.4-10.2); CARBON DIOXIDE 22 mmol/L (22-30); CHLORIDE 105 mmol/L (98-107); GLUCOSE 111 mg/dL (75-110); POTASSIUM 3.7 mmol/L (3.6-5.0); TOTAL PROTEIN 8.4 g/dL (6.3-8.2)
--- NOTE | 2019-11-25 19:21 | EKG REPORT ---
SEVERITY:- BORDERLINE ECG - SINUS RHYTHM BORDERLINE T ABNORMALITIES, ANTERIOR LEADS : Confirmed by: Maverick Duke MD 25-Nov-2019 19:21:02
[2019-11-25] MEDS ORDERED: METOCLOPRAMIDE HCL INJ/PF 10 MG/2 ML SDV IV ONE (20:04)
[2019-11-25] MEDS ORDERED: NORMAL SALINE 1000 ML 1,000 ML IV ONE (20:04)
[2019-11-25] MEDS ORDERED: DIPHENHYDRAMINE HCL 50 MG/ML VIAL IV ONE (20:04)
--- NOTE | 2019-11-25 21:15 | RADIOLOGY REPORT (SQ) ---
EXAM DESCRIPTION: CT ABDOMEN PELVIS WITH IV CONTRAST COMPLETED DATE/TME: 11/25/2019 00:00 CLINICAL HISTORY: 39 years Female epigastric pain, hx casey en y 2016 COMPARISON: 12/29/2017. TECHNIQUE: Contiguous axial images obtained through the abdomen and pelvis following IV contrast. Reformatted images obtained. This exam was performed according to our department optimization program which includes automated exposure control, adjustment of the mA and/or kv according to patient size and/or use of iterative reconstruction technique. FINDINGS: The liver appears unremarkable. The spleen and pancreas appear unremarkable. No adrenal masses. The kidneys appear unremarkable. No hydronephrosis. The gallbladder is absent with mild biliary ductal dilatation No aneurysmal dilatation of the aorta. No bowel obstruction. The appendix is nonvisualized Gastric bypass with Casey-en-Y.. No significant free fluid noted. IMPRESSION: No acute abnormality is identified. Absent gallbladder with mild biliary ductal dilatation. If there is concern for ductal obstruction MRCP could be acquired Gastric bypass
[2019-11-25] MEDS ORDERED: HYDROCODONE/ACETAMINOPHEN 5-325 MG (6 TAB/ER DISP) PO PRN (21:30)
[2019-11-25] MEDS ORDERED: ONDANSETRON ODT 4 MG TAB (6 TAB/ER DISP) PO PRN (21:31)
[2019-11-25 22:20] VITALS: BP 127/86
== END 2019-11-25 22:15 | disposition home or self-care (01) ==
LOC: ER 15:58
DX: R10.13 Epigastric pain (principal); M79.602 Pain in left arm
CPT/HCPCS: 93005; 99284; 96361; 96374; 96375; 36415; 83690; 85025; 81025; 80053; 81001; 74177; 93010; J1200; J2765; J2270; J2405; J7030

== ENCOUNTER 2020-02-04 10:15 | Day surgery (SDC) | payer MEDICAID ==
[2020-01-31 10:45] LABS: HEMATOCRIT 33.7 % (36.0-47.0); HEMOGLOBIN 11.1 g/dL (12.0-15.5); MEAN CORPUSCULAR HGB CONC 32.9 g/dL (32.0-36.0); MEAN CORPUSCULAR VOLUME 91 fl (80-97); PLATELET COUNT 352 10^3/uL (150-450); RED BLOOD COUNT 3.68 10^6/uL (3.72-5.28); RED CELL DISTRIBUTION WIDTH 13.9 % (11.5-14.0); WHITE BLOOD COUNT 10.9 10^3/uL (4.0-10.5)
[2020-01-31 10:47] LABS: APPEARANCE,URINE CLEAR; BILIRUBIN,URINE NEGATIVE (NEGATIVE); COLOR,URINE STRAW; GLUCOSE, URINE NEGATIVE (NEGATIVE); KETONES,URINE NEGATIVE (NEGATIVE); LEUKOCYTE ESTERASE,URINE TRACE (NEGATIVE); NITRITE,URINE NEGATIVE (NEGATIVE); PROTEIN,URINE NEGATIVE (NEGATIVE); URINE SPECIFIC GRAVITY 1.011; UROBILINOGEN,URINE NEGATIVE mg/dL (<2.0)
[~2020-02-04 10:15] MED LIST: LACTATED RINGERS 1000 ML IV PRN; LIDOCAINE 0.5% INJ-PF (5 MG/ML) 50 ML SDV SUBCUT PRN
[2020-02-04] MEDS ORDERED: MIDAZOLAM 2 MG/2 ML INJ ONE (12:25)
[2020-02-04] MEDS ORDERED: DEXAMETHASONE SOD PHOSPHATE INJ 4 MG/1 ML VIAL ONE (12:25)
[2020-02-04] MEDS ORDERED: KETOROLAC TROMETHAMINE 60 MG/2 ML SDV ONE (12:25)
[2020-02-04] MEDS ORDERED: FENTANYL CITRATE INJ/PF 100 MCG/2 ML AMPUL ONE (12:25)
[2020-02-04] MEDS ORDERED: ONDANSETRON HCL INJ/PF 4 MG/2 ML SDV ONE (12:25)
[2020-02-04] MEDS ORDERED: PROPOFOL INJ 200 MG/20 ML VIAL IV ONE (12:25)
[2020-02-04] MEDS ORDERED: MORPHINE SULFATE 10 MG/ML INJ IV PRN (13:09)
[2020-02-04] MEDS ORDERED: DIPHENHYDRAMINE HCL 50 MG/ML VIAL IV PRN (13:09)
[2020-02-04] MEDS ORDERED: ONDANSETRON HCL INJ/PF 4 MG/2 ML SDV IV PRN (13:09)
[2020-02-04] MEDS ORDERED: FENTANYL CITRATE INJ/PF 100 MCG/2 ML AMPUL IV PRN ×3 (13:09)
[2020-02-04] MEDS ORDERED: MEPERIDINE HCL/PF INJ 25 MG/1 ML DISP.SYRIN IV PRN (13:09)
[2020-02-04] MEDS ORDERED: OXYCODONE-ACETAMINOPHEN 5-325 MG TABLET PO PRN ×4 (13:09→13:32)
[2020-02-04] MEDS ORDERED: PROMETHAZINE HCL INJ 25 MG/1 ML VIAL IV PRN ×2 (13:09)
[2020-02-04] MEDS ORDERED: KETOROLAC TROMETHAMINE INJ/PF 30 MG/1 ML SDV IV PRN (13:32)
[2020-02-04] MEDS ORDERED: IBUPROFEN 800 MG TABLET PO PRN (13:32)
[2020-02-04] MEDS ORDERED: RINGERS SOLUTION,LACTATED 1,000 ML IV PRN (13:32)
--- NOTE | 2020-02-04 13:37 | Operative Report ---
Operative Report DATE OF SURGERY: 02/04/20 PREOPERATIVE DIAGNOSIS: Patient reports pelvic pain and irregular heavy bleeding POSTOPERATIVE DIAGNOSIS: Same plus dense adhesions of her scar to the anterior abdominal wall and mild cul-de-sac endometriosis OPERATION: Laparoscopy hysteroscopy D&C SURGEON: IRWIN RECIO ANESTHESIA: GA TISSUE REMOVED OR ALTERED: Uterine contents COMPLICATIONS: None ESTIMATED BLOOD LOSS: Minimal INTRAOPERATIVE FINDINGS: Dense uterine adhesions to the anterior scar. Mild cul-de-sac endometriosis. PROCEDURE: Patient was taken the OR and placed in supine position. General anesthesia was induced. She is placed in dorsolithotomy position using Sulaiman stirrups. Her abdomen and perineum vagina were prepared and draped in a sterile fashion. Her bladder was drained with a red rubber catheter. A sponge stick was placed in the vagina for manipulation of the uterus. An incision was made the umbilicus natural umbilical defect was identified and dilated with a Kathy clamp allowing a blunt port to be placed. Laparoscopy confirmed appropriate placement. The abdomen was insufflated with CO2 gas. Immediately it was noted that her anterior uterine scar was adhered to the anterior abdominal wall very densely which most likely accounts for the majority of her pain. View of the pelvis also showed some mild cul-de-sac endometriosis. Tubes and ovaries were normal. The gas was allowed to escape from the abdomen. The scope and camera were removed. The umbilicus was closed with a 2-0 Vicryl suture at the deep tissue and a skin suture of 4-0 undyed Vicryl. We then turned to the vaginal portion of the case. A weighted speculum was placed in the anterior lip cervix grasped with tenaculum. Uterus sounded to 7 cm before and after the case. Endocervical curettings were obtained. The cervix was gently dilated and the hysteroscope inserted. An empty uterine cavity was noted. Both tubal ostia could be easily seen. Sharp curettage was performed and tissue sent for pathology. It appears she has pretty dense adhesions from her scar. I would recommend a hysterectomy after she is completed childbearing. I did not attempt to lyse the adhesions today as this would put the bladder at jeopardy.
--- NOTE | 2020-02-04 13:42 | Discharge Summary ---
Discharge Summary (SDC) - Discharge Final Diagnosis: Pelvic adhesions and mild cul-de-sac endometriosis Date of Surgery: 02/04/20 Discharge Date: 02/04/20 Condition: Good Prescriptions: Oxycodone HCl/Acetaminophen [Percocet 5-325 mg Tablet] 1 tab PO Q4HP PRN #30 tablet PRN Reason: Ibuprofen [Motrin 800 mg Tablet] 800 mg PO Q8H PRN #30 tablet PRN Reason: Referrals: MEIR LOGAN MD [Primary Care Provider] - Discharge Diet: Regular Discharge Activity: Pelvic Rest Report the Following to Your Physician Immediately: Fever over 101 Degrees
[2020-02-04] MEDS ORDERED: MORPHINE SULFATE 10 MG/ML INJ ONE (14:01)
[2020-02-04] MEDS ORDERED: NEOSTIGMINE METHYLSULFATE 10 MG/10 ML VIAL ONE (14:16)
[2020-02-04] MEDS ORDERED: GLYCOPYRROLATE 1 MG/5 ML VIAL ONE (14:16)
[2020-02-04] MEDS ORDERED: SUCCINYLCHOLINE CHLORIDE INJ 200 MG/10 ML VIAL ONE (14:16)
[2020-02-04] MEDS ORDERED: VECURONIUM BROMIDE INJ 10 MG VIAL IV ONE (14:16)
[2020-02-04] MEDS ORDERED: OXYCODONE-ACETAMINOPHEN 5-325 MG TABLET ONE (14:38)
[2020-02-04] MEDS ORDERED: IBUPROFEN 800 MG TABLET ONE (14:39)
[2020-02-04 15:54] VITALS: BP 129/80
== END 2020-02-04 15:45 | disposition home or self-care (01) ==
LOC: OROUT 10:15
PROVIDERS: ATTEND Obstetrics & Gynecology
DX: N93.8 Other specified abnormal uterine and vaginal bleeding (principal); N73.6 Female pelvic peritoneal adhesions (postinfective); N80.3 Endometriosis of pelvic peritoneum; Z79.899 Other long term (current) drug therapy
CPT/HCPCS: 36415; 85027; 87635; 81005; 81025; 88305 ×2; 49320; 58558; J2250; J3490 ×3; J1100; J1885; J3010; J2270; J2710; J0330; J2405; J2704; C9803; 840

== ENCOUNTER 2020-04-03 08:05 | Inpatient (IN) | payer MEDICAID ==
[2020-03-31 11:33] LABS: HEMOGLOBIN 10.6 g/dL (12.0-15.5); MEAN CORPUSCULAR HEMOGLOBIN 28.7 pg (27.0-33.4); MEAN CORPUSCULAR HGB CONC 33.1 g/dL (32.0-36.0); MEAN CORPUSCULAR VOLUME 87 fl (80-97); PLATELET COUNT 410 10^3/uL (150-450); RED BLOOD COUNT 3.69 10^6/uL (3.72-5.28); RED CELL DISTRIBUTION WIDTH 14.9 % (11.5-14.0); WHITE BLOOD COUNT 10.2 10^3/uL (4.0-10.5)
[2020-03-31 11:35] LABS: APPEARANCE,URINE CLEAR; BILIRUBIN,URINE NEGATIVE (NEGATIVE); COLOR,URINE YELLOW; GLUCOSE, URINE NEGATIVE (NEGATIVE); KETONES,URINE NEGATIVE (NEGATIVE); LEUKOCYTE ESTERASE,URINE TRACE (NEGATIVE); NITRITE,URINE NEGATIVE (NEGATIVE); PROTEIN,URINE NEGATIVE (NEGATIVE); URINE SPECIFIC GRAVITY 1.024
[2020-03-31 12:04] LABS: ALBUMIN 4.1 g/dL (3.5-5.0); ALKALINE PHOSPHATASE 212 U/L (38-126); ANION GAP 9 (5-19); ASPARTATE AMINO TRANSFERASE 85 U/L (14-36); BILIRUBIN,DIRECT 0.2 mg/dL (0.0-0.4); BILIRUBIN,TOTAL 0.4 mg/dL (0.2-1.3); BLOOD UREA NITROGEN 13 mg/dL (7-20); CARBON DIOXIDE 29 mmol/L (22-30); CHLORIDE 100 mmol/L (98-107); GLUCOSE 74 mg/dL (75-110); TOTAL PROTEIN 7.4 g/dL (6.3-8.2)
[2020-04-03] MEDS ORDERED: CEFAZOLIN 2 GM/D5W RTU 2 GM/50 ML RTUPB IV ONE (08:12)
[2020-04-03] MEDS ORDERED: PROPOFOL INJ 200 MG/20 ML VIAL IV ONE (09:42)
[2020-04-03] MEDS ORDERED: FENTANYL CITRATE INJ/PF 250 MCG/5 ML AMPULE ONE (09:42)
[2020-04-03] MEDS ORDERED: MIDAZOLAM 2 MG/2 ML INJ ONE (09:42)
[2020-04-03] MEDS ORDERED: FENTANYL CITRATE INJ/PF 100 MCG/2 ML AMPUL IV PRN ×3 (10:14)
[2020-04-03] MEDS ORDERED: MEPERIDINE HCL/PF INJ 25 MG/1 ML DISP.SYRIN IV PRN (10:14)
[2020-04-03] MEDS ORDERED: MORPHINE SULFATE 10 MG/ML INJ IV PRN (10:14)
[2020-04-03] MEDS ORDERED: DIPHENHYDRAMINE HCL 50 MG/ML VIAL IV PRN (10:14)
[2020-04-03] MEDS ORDERED: PROMETHAZINE HCL INJ 25 MG/1 ML VIAL IV PRN ×2 (10:14→12:02)
[2020-04-03] MEDS ORDERED: OXYCODONE-ACETAMINOPHEN 5-325 MG TABLET PO PRN (12:02)
[2020-04-03] MEDS ORDERED: ACETAMINOPHEN 325 MG TABLET PO PRN (12:02)
[2020-04-03] MEDS ORDERED: SIMETHICONE 80 MG TAB.CHEW PO PRN (12:02)
[2020-04-03] MEDS ORDERED: ACETAMINOPHEN 1,000 MG/100 ML RTUPB IV PRN (12:02)
--- NOTE | 2020-04-03 12:16 | Operative Report ---
Operative Report DATE OF SURGERY: 04/03/20 PREOPERATIVE DIAGNOSIS: Pelvic pain and pelvic adhesions POSTOPERATIVE DIAGNOSIS: Same OPERATION: Total abdominal hysterectomy bilateral salpingectomy SURGEON: IRWIN RECIO ANESTHESIA: GA TISSUE REMOVED OR ALTERED: Uterus cervix and fallopian tubes COMPLICATIONS: None ESTIMATED BLOOD LOSS: 250 cc INTRAOPERATIVE FINDINGS: Uterus is adhesed to the anterior pelvis dense fascial adhesions as well PROCEDURE: Patient was taken the OR and placed in supine position. General anesthesia was induced. Her abdomen perineum and vagina were prepared and draped in a sterile fashion her bladder was drained with a Messer catheter. An incision was made on the abdomen and a low transverse fashion carried down to the level of the fascia. The fascia was nicked in the midline. The fascial incision was extended bilaterally using curved [place] scissors. Dense scarring noted. The fascia was off the rectus muscles using sharp and blunt dissection. Peritoneum was elevated and entered without incident. The peritoneal incision was extended superiorly and inferiorly taking care not to injure bladder. The Galo retractor was then placed. The bowel was packed back using 3 moist lap sponges. The uterus showed dense adhesion to the anterior pelvis. The ovaries appeared normal. The uterus was grasped with Rio thyroid clamp. The round ligament on the right was grasped with a Delmita. The round ligament was ligated with a 0 chromic. A Kathy clamp was placed proximally and the round ligament was incised. The anterior leaf of the broad ligament was incised creating a bladder flap. The right utero-ovarian pedicle was isolated and then clamped with a curved Pritesh clamp. The pedicle was cut and then doubly ligated first with a free tie of 0 Vicryl followed by a transfixation suture of 0 Vicryl. Next the left round ligament was clamped with a Delmita and elevated. A suture of 0 Vicryl was placed. A Kathy was placed proximally and the round ligament was cut and once again the anterior leaf of the broad ligament on the left was incised creating a bladder flap. The area of dense adhesion was taken down sharply without evidence of injury to the bladder. After that he adhesion was taken down the sponge stick was used to push the bladder flap downward and off the cervix. The left utero ovarian pedicle was isolated and then clamped with a curved Pritesh clamp. It was cut and then doubly ligated first with a free tie of 0 Vicryl followed by transfixation suture of 0 Vicryl the uterine arteries were skeletonized bilaterally and then they were clamped with curved Pritesh clamp cut and ligated with 0 Vicryl in a transfixation technique. The cardinal ligaments bilaterally were clamped with a straight Pritesh clamp. They were then cut and ligated with a transfixation suture of 0 Vicryl. During this time the bladder flap was developed as we progressed down the cervix. Upon reaching the vaginal angles curved Pritesh clamps were placed across the vaginal angles. They were interning then cut and ligated with a transfixation suture of 0 Vicryl. The cervix was excised free from the vaginal cuff and passed off the field. The vaginal cuff was closed with a running locking layer of 0 Vicryl. Hemostasis was good. The pedicles and turn were checked and good hemostasis was noted at the vaginal cuff uterine and utero-ovarian pedicles. The attention was then turned to the fallopian tubes and the fallopian tubes in turn were clamped across the mesosalpinx with curved Pritesh clamp and then excised and passed off the field. Transfixation sutures of 0 Vicryl were then used to tie off these pedicles. Next the pelvis was irrigated and fluid suctioned free. The lap sponges Galo retractor were removed. The abdominal wall peritoneum was closed with a running 3-0 chromic stitch. The subfascial tissues were inspected for bleeding and on the patient's left 1 of the perforating vessels was bleeding. This was clamped and tied off with a 3-0 chromic suture. This provided good hemostasis. Next the fascia was closed with a running 0 Vicryl in 2 segments. The wound was irrigated Marcelo's layer was closed with a 2-0 plain gut suture. And the skin was closed with a running subcuticular 4-0 undyed suture. The wound was dressed. The patient was extubated in the OR and taken recovery room in stable condition.
[2020-04-03] MEDS: FENTANYL CITRATE INJ/PF 100 MCG/2 ML AMPUL ONE ×3 (12:18→12:28)
[2020-04-03] MEDS ORDERED: ONDANSETRON HCL INJ/PF 4 MG/2 ML SDV ONE (12:34)
[2020-04-03] MEDS ORDERED: ROCURONIUM BROMIDE INJ 50 MG/5 ML VIAL IV ONE (12:34)
[2020-04-03] MEDS ORDERED: SUCCINYLCHOLINE CHLORIDE INJ 200 MG/10 ML VIAL ONE (12:34)
[2020-04-03] MEDS ORDERED: DEXAMETHASONE SOD PHOSPHATE INJ 4 MG/1 ML VIAL ONE (12:34)
[2020-04-03] MEDS ORDERED: NEOSTIGMINE METHYLSULFATE 10 MG/10 ML VIAL ONE (12:34)
[2020-04-03] MEDS ORDERED: KETOROLAC TROMETHAMINE 60 MG/2 ML SDV ONE (12:34)
[2020-04-03] MEDS ORDERED: GLYCOPYRROLATE 1 MG/5 ML VIAL ONE (12:34)
[2020-04-03] MEDS ORDERED: METOCLOPRAMIDE HCL INJ/PF 10 MG/2 ML SDV ONE (12:34)
[2020-04-03] MEDS ORDERED: MORPHINE SULFATE 10 MG/ML INJ ONE (12:35)
[2020-04-03] MEDS ORDERED: ROPIVACAINE HCL 0.5% INJ/PF (5 MG/1 ML) 30 ML SDV ONE (12:51)
[2020-04-03] MEDS ORDERED: LIDOCAINE 1% INJ-PF (10 MG/ML) 30 ML SDV ONE (12:53)
[2020-04-03] MEDS ORDERED: FENTANYL CITRATE INJ/PF 100 MCG/2 ML AMPUL ONE (13:00)
[2020-04-03] MEDS: HYDROMORPHONE HCL INJ/PF 2 MG/ML AMPULE IV PRN ×2 (14:41→17:51)
[2020-04-03] MEDS: KETOROLAC TROMETHAMINE INJ/PF 30 MG/1 ML SDV IV SCH ×2 (16:12→21:26)
[2020-04-03 16:19] LABS: ANION GAP 10 (5-19); BLOOD UREA NITROGEN 18 mg/dL (7-20); CALCIUM 8.9 mg/dL (8.4-10.2); CARBON DIOXIDE 25 mmol/L (22-30); CHLORIDE 102 mmol/L (98-107); GLUCOSE 130 mg/dL (75-110); POTASSIUM 4.4 mmol/L (3.6-5.0)
[2020-04-03 16:21] LABS: HEMATOCRIT 31.1 % (36.0-47.0); HEMOGLOBIN 10.1 g/dL (12.0-15.5); MEAN CORPUSCULAR HEMOGLOBIN 28.2 pg (27.0-33.4); MEAN CORPUSCULAR HGB CONC 32.6 g/dL (32.0-36.0); MEAN CORPUSCULAR VOLUME 87 fl (80-97); PLATELET COUNT 393 10^3/uL (150-450); RED CELL DISTRIBUTION WIDTH 14.7 % (11.5-14.0); WHITE BLOOD COUNT 15.9 10^3/uL (4.0-10.5)
[2020-04-03 16:23] LABS: ABSOLUTE LYMPHOCYTES# (MANUAL) 0.5 10^3/uL (0.5-4.7); ABSOLUTE MONOCYTES # (MANUAL) 0.8 10^3/uL (0.1-1.4); BASOPHILS % (MANUAL) 0 % (0-2); EOSINOPHILS % (MANUAL) 0 % (0-6); LYMPHOCYTES % (MANUAL) 3 % (13-45); MONOCYTES % (MANUAL) 5 % (3-13); SEGMENTED NEUTROPHILS % (MAN) 92 % (42-78); TOTAL CELLS COUNTED 100
[2020-04-03 16:27] LABS: ANISOCYTOSIS SLIGHT; PLATELET COMMENT ADEQUATE
[2020-04-03] MEDS: DOCUSATE SODIUM 100 MG CAPSULE PO SCH (17:51)
[2020-04-03] MEDS: RINGERS SOLUTION,LACTATED 1,000 ML IV PRN (17:55)
[2020-04-03] MEDS: OXYCODONE-ACETAMINOPHEN 5-325 MG TABLET PO PRN (21:27)
[2020-04-03] MEDS ORDERED: ZOLPIDEM TARTRATE 5 MG TABLET PO SCH (22:00)
[2020-04-04] MEDS: RINGERS SOLUTION,LACTATED 1,000 ML IV PRN (00:08)
[2020-04-04] MEDS: IBUPROFEN 800 MG TABLET PO SCH ×3 (01:12→14:24)
[2020-04-04] MEDS: OXYCODONE-ACETAMINOPHEN 5-325 MG TABLET PO PRN ×3 (01:27→10:51)
[2020-04-04] MEDS: KETOROLAC TROMETHAMINE INJ/PF 30 MG/1 ML SDV IV SCH (06:10)
[2020-04-04 08:05] LABS: MEAN CORPUSCULAR HEMOGLOBIN 28.6 pg (27.0-33.4); MEAN CORPUSCULAR HGB CONC 33.2 g/dL (32.0-36.0); MEAN CORPUSCULAR VOLUME 86 fl (80-97); PLATELET COUNT 334 10^3/uL (150-450); RED BLOOD COUNT 3.14 10^6/uL (3.72-5.28); RED CELL DISTRIBUTION WIDTH 14.7 % (11.5-14.0); WHITE BLOOD COUNT 10.4 10^3/uL (4.0-10.5)
--- NOTE | 2020-04-04 08:16 | PDOC PROGRESS REPORT ---
Subjective Progress Note for:: 04/04/20 Subjective:: Tolerating diet. working on pain control. Reason For Visit: N93.8 OTHER SPECIFIED ABNORMAL UTERINE AND VAGINAL Physical Exam - Physical Exam Vital Signs: Temp Pulse Resp BP Pulse Ox 97.8 F 98 16 112/78 97 04/04/20 07:21 04/04/20 07:21 04/04/20 07:21 04/04/20 07:21 04/04/20 07:21 Intake & Output 04/03/20 04/04/20 04/05/20 06:59 06:59 06:59 Intake Total 2362 Output Total 2375 Balance -13 Weight 93 kg General appearance: PRESENT: no acute distress, well-developed, well-nourished GI/Abdominal exam: PRESENT: other - dressing dry Result Laboratory Results: 04/04/20 07:10 04/03/20 15:30 04/03/20 04/03/20 04/04/20 15:30 15:30 07:10 WBC 15.9 H 10.4 RBC 3.60 L 3.14 L Hgb 10.1 L 9.0 L Hct 31.1 L 27.0 L MCV 87 86 MCH 28.2 28.6 MCHC 32.6 33.2 RDW 14.7 H 14.7 H Plt Count 393 334 Seg Neutrophils % Not Reportable Sodium 136.8 L Potassium 4.4 Chloride 102 Carbon Dioxide 25 Anion Gap 10 BUN 18 Creatinine 0.46 L Est GFR ( Amer) > 60 Glucose 130 H Calcium 8.9 Assessment & Plan - Diagnosis (1) Pelvic peritoneal adhesions, female Is this a current diagnosis for this admission?: Yes Plan: s/p ANGELLA. Plan to continue care and home when able. - Time Time Spent with patient: 15-24 minutes Anticipated discharge: Home Anticipated DC Timeframe: within 36 hours
[2020-04-04] MEDS ORDERED: PRENATAL VITAMIN W DHA CAPSULE PO SCH (10:00)
[2020-04-04] MEDS: DOCUSATE SODIUM 100 MG CAPSULE PO SCH (10:52)
[2020-04-04 11:27] VITALS: BP 110/76
--- NOTE | 2020-04-04 13:34 | PDOC DISCHARGE SUMMARY ---
Impression - Admit/DC Date/PCP Admission Date/Primary Care Provider: 04/03/20 08:05 MEIR LOGAN MD Discharge Date: 04/04/20 - Discharge Diagnosis (1) Pelvic peritoneal adhesions, female Is this a current diagnosis for this admission?: Yes - Assessment Summary: The pt was admitted for a hysterectomy for pelvic adhesions and chronic pelvic pain. Please see the op report. The night of surgery she did well. Post op day one she was ambulatory and on a regular diet. She is ready to go home and has followup next week. Home to rest with percocet for pain control. - Additional Information Resuscitation Status: Full Code Discharge Diet: Regular Discharge Activity: Balance Activity w/Rest, No Driving, Pelvic Rest Referrals: MEIR LOGAN MD [Primary Care Provider] - IRWIN RECIO MD [ACTIVE STAFF] - 04/11/20 3:00 am (ANY QUESTIONS OR CONCERNS PLEASE CALL THE OFFICE.) Prescriptions: Oxycodone HCl/Acetaminophen [Percocet 5-325 mg Tablet] 2 tab PO Q4HP PRN #30 tablet PRN Reason: Docusate Sodium [Colace 100 mg Capsule] 100 mg PO BID #30 capsule Ibuprofen [Motrin 800 mg Tablet] 800 mg PO Q8H #30 tablet Home Medications: Gabapentin [Neurontin 300 mg Capsule] 300 mg PO Q12 12/29/17 Benztropine Mesylate [Cogentin 1 mg Tablet] 0.5 mg PO BID 02/04/20 Cariprazine HCl [Vraylar] 3 mg PO DAILY 02/04/20 Desvenlafaxine Succinate [Desvenlafaxine Succinate ER] 100 mg PO DAILY 02/04/20 Rizatriptan Benzoate [Rizatriptan] 10 mg PO ASDIR PRN 02/04/20 Suvorexant [Belsomra] 20 mg PO DAILY 02/04/20 Pantoprazole Sodium 40 mg PO DAILY 04/03/20 Topiramate 50 mg PO DAILY 04/03/20 Docusate Sodium [Colace 100 mg Capsule] 100 mg PO BID #30 capsule 04/04/20 Ibuprofen [Motrin 800 mg Tablet] 800 mg PO Q8H #30 tablet 04/04/20 Oxycodone HCl/Acetaminophen [Percocet 5-325 mg Tablet] 2 tab PO Q4HP PRN #30 tablet 04/04/20 Additional Information: follwup next week History of Present Illiness History of Present Illness: JOSE MCGOVERN is a 40 year old female Physical Exam - Physical Exam Vital Signs: Temp Pulse Resp BP Pulse Ox 98.1 F 72 16 110/76 99 04/04/20 11:26 04/04/20 11:26 04/04/20 11:26 04/04/20 11:26 04/04/20 11:26 Intake & Output 04/03/20 04/04/20 04/05/20 06:59 06:59 06:59 Intake Total 2362 Output Total 2375 Balance -13 Weight 93 kg Results Laboratory Results: WBC 10.4 10^3/uL (4.0-10.5) 04/04/20 07:10 RBC 3.14 10^6/uL (3.72-5.28) L 04/04/20 07:10 Hgb 9.0 g/dL (12.0-15.5) L 04/04/20 07:10 Hct 27.0 % (36.0-47.0) L 04/04/20 07:10 MCV 86 fl (80-97) 04/04/20 07:10 MCH 28.6 pg (27.0-33.4) 04/04/20 07:10 MCHC 33.2 g/dL (32.0-36.0) 04/04/20 07:10 RDW 14.7 % (11.5-14.0) H 04/04/20 07:10 Plt Count 334 10^3/uL (150-450) 04/04/20 07:10 Lymph % (Auto) Not Reportable 04/03/20 15:30 Page % (Auto) Not Reportable 04/03/20 15:30 Eos % (Auto) Not Reportable 04/03/20 15:30 Baso % (Auto) Not Reportable 04/03/20 15:30 Absolute Neuts (auto) Not Reportable 04/03/20 15:30 Absolute Lymphs (auto) Not Reportable 04/03/20 15:30 Absolute Monos (auto) Not Reportable 04/03/20 15:30 Absolute Eos (auto) Not Reportable 04/03/20 15:30 Absolute Basos (auto) Not Reportable 04/03/20 15:30 Total Counted 100 04/03/20 15:30 Seg Neutrophils % Not Reportable 04/03/20 15:30 Seg Neuts % (Manual) 92 % (42-78) H 04/03/20 15:30 Lymphocytes % (Manual) 3 % (13-45) L 04/03/20 15:30 Monocytes % (Manual) 5 % (3-13) 04/03/20 15:30 Eosinophils % (Manual) 0 % (0-6) 04/03/20 15:30 Basophils % (Manual) 0 % (0-2) 04/03/20 15:30 Abs Neuts (Manual) 14.6 10^3/uL (1.7-8.2) H 04/03/20 15:30 Abs Lymphs (Manual) 0.5 10^3/uL (0.5-4.7) 04/03/20 15:30 Abs Monocytes (Manual) 0.8 10^3/uL (0.1-1.4) 04/03/20 15:30 Absolute Eos (Manual) 0.0 10^3/uL (0.0-0.6) 04/03/20 15:30 Abs Basophils (Manual) 0.0 10^3/uL (0.0-0.2) 04/03/20 15:30 Platelet Comment ADEQUATE 04/03/20 15:30 Anisocytosis SLIGHT 04/03/20 15:30 Sodium 136.8 mmol/L (137-145) L 04/03/20 15:30 Potassium 4.4 mmol/L (3.6-5.0) 04/03/20 15:30 Chloride 102 mmol/L (98-107) 04/03/20 15:30 Carbon Dioxide 25 mmol/L (22-30) 04/03/20 15:30 Anion Gap 10 (5-19) 04/03/20 15:30 BUN 18 mg/dL (7-20) 04/03/20 15:30 Creatinine 0.46 mg/dL (0.52-1.25) L 04/03/20 15:30 Est GFR ( Amer) > 60 (>60) 04/03/20 15:30 Est GFR (MDRD) Non-Af > 60 (>60) 04/03/20 15:30 Glucose 130 mg/dL (75-110) H 04/03/20 15:30 Calcium 8.9 mg/dL (8.4-10.2) 04/03/20 15:30 Total Bilirubin 0.4 mg/dL (0.2-1.3) 03/31/20 11:01 Direct Bilirubin 0.2 mg/dL (0.0-0.4) 03/31/20 11:01 Neonat Total Bilirubin Not Reportable 03/31/20 11:01 Neonat Direct Bilirubin Not Reportable 03/31/20 11:01 Neonat Indirect Bili Not Reportable 03/31/20 11:01 AST 85 U/L (14-36) H 03/31/20 11:01 ALT 196 U/L (<35) H 03/31/20 11:01 Alkaline Phosphatase 212 U/L (38-126) H 03/31/20 11:01 Total Protein 7.4 g/dL (6.3-8.2) 03/31/20 11:01 Albumin 4.1 g/dL (3.5-5.0) 03/31/20 11:01 Urine Color YELLOW 03/31/20 11:10 Urine Appearance CLEAR 03/31/20 11:10 Urine pH 5.0 (5.0-9.0) 03/31/20 11:10 Ur Specific [place] 1.024 03/31/20 11:10 Urine Protein NEGATIVE mg/dL (NEGATIVE) 03/31/20 11:10 Urine Glucose (UA) NEGATIVE mg/dL (NEGATIVE) 03/31/20 11:10 Urine Ketones NEGATIVE mg/dL (NEGATIVE) 03/31/20 11:10 Urine Blood NEGATIVE (NEGATIVE) 03/31/20 11:10 Urine Nitrite NEGATIVE (NEGATIVE) 03/31/20 11:10 Urine Bilirubin NEGATIVE (NEGATIVE) 03/31/20 11:10 Urine Urobilinogen 4.0 mg/dL (<2.0) H 03/31/20 11:10 Ur Leukocyte Esterase TRACE (NEGATIVE) H 03/31/20 11:10 Urine WBC (Auto) 9 /HPF 03/31/20 11:10 Urine RBC (Auto) 3 /HPF 03/31/20 11:10 U Hyaline Cast (Auto) 1 /LPF 03/31/20 11:10 Urine Bacteria (Auto) 1+ /HPF 03/31/20 11:10 Squamous Epi Cells Auto 2 /HPF 03/31/20 11:10 Urine Mucus (Auto) MOD /LPF 03/31/20 11:10 Urine Ascorbic Acid NEGATIVE (NEGATIVE) 03/31/20 11:10 Urine HCG, Qual NEGATIVE (NEGATIVE) 04/03/20 08:10 COVID-19 Source NASOPHARYNGEAL 03/31/20 10:55 COVID-19 (ESTELITA) NOT DETECTED 03/31/20 10:55 Blood Type A POSITIVE 03/31/20 11:01 Antibody Screen NEGATIVE 03/31/20 11:01 Stroke Is this a Stroke Patient?: No Acute Heart Failure - Is this a Heart Failure Patient?: No
== END 2020-04-04 14:22 | disposition home or self-care (01) | DRG 743 ==
LOC: INOR 08:05 → 2N 13:48
PROVIDERS: ADMIT Obstetrics & Gynecology; ATTEND Obstetrics & Gynecology
PROC: 0UB70ZZ Excision of Bilateral Fallopian Tubes, Open Approach (ICD-10-PCS; 2020-04-03)
PROC: 0UT90ZZ Resection of Uterus, Open Approach (ICD-10-PCS; principal; 2020-04-03 10:30)
DX: N93.8 Other specified abnormal uterine and vaginal bleeding (principal); Z30.2 Encounter for sterilization; N73.6 Female pelvic peritoneal adhesions (postinfective); F32.9 Major depressive disorder, single episode, unspecified; G89.29 Other chronic pain; M54.9 Dorsalgia, unspecified; Z11.59 Encounter for screening for other viral diseases; Z79.899 Other long term (current) drug therapy; Z88.6 Allergy status to analgesic agent; Z83.3 Family history of diabetes mellitus; Z80.3 Family history of malignant neoplasm of breast
CPT/HCPCS: 36415; 64486; 76942; 80048; 80053; 81001; 81025; 840; 85025; 85027; 86850; 86900; 86901; 87635; 88307; 94799; C1758; C9803; J0330; J0690; J1100; J1170; J1885; J2250; J2270; J2405; J2704; J2710; J2765; J2795; J3010; J3490; J7120